=== PATIENT | male | born 1980 | race Caucasian/White ===

== ENCOUNTER 2017-10-29 18:45 | Inpatient (IN) | payer MEDICARE, MEDICAID ==
[~2017-10-29] VITALS: Ht 175.3 cm; Wt 84.0 kg
[~2017-10-29 18:45] MED LIST: ACET-1008 PO; ASPI-4 PO; ATOR10TA70 PO; CALC0.253 PO; CARV3.1244 PO; CINA30TA2 PO; DIPH25CA83 PO; EPOE40002 SQ; FERR324T4 PO; FLUT1DIS INH; GABA-532 PO; HYDR-565 PO; LEVO150T PO; LIDO5CRE13 TOP; METO5TAB98 PO; NEPHC PO; OMEP20TA23 PO; RIFA300C4 PO; SEVE800T8 PO; TRAZ-143 PO; VALS40TA2 PO; VITA1CAP PO; ZOF4I IV; ZOLP10TA5 PO
[2017-10-29 20:24] LABS: BASOPHILS % (AUTO) 0.5 % (0-1); EOSINOPHILS # (AUTO) 0.3 X10'3 (0-0.9); EOSINOPHILS % (AUTO) 3.8 % (0-6); HEMATOCRIT 35.6 % (42.0-52.0); HEMOGLOBIN 12.3 g/dl (14.0-17.9); LYMPHOCYTES % (AUTO) 14.1 % (21-51); MEAN CORPUSCULAR HEMOGLOBIN 33.2 PG (27.0-31.0); MEAN CORPUSCULAR HGB CONC 34.5 % (33.0-36.5); MEAN CORPUSCULAR VOLUME 96.1 FL (78-98); MEAN PLATELET VOLUME 7.7 FL (7.4-10.4); MONOCYTES # (AUTO) 0.9 X10'3 (0-0.9); MONOCYTES % (AUTO) 12.6 % (2-12); PLATELET COUNT 171 X10'3 (140-440); RED BLOOD COUNT 3.71 X10'6 (4.70-6.10); RED CELL DISTRIBUTION WIDTH 15.9 % (11.5-14.5); WHITE BLOOD COUNT 7.3 X10'3 (4.5-11.0)
[2017-10-29 20:36] LABS: INR 1.1 INR; PROTHROMBIN TIME 11.4 SECONDS (9.0-12.0)
[2017-10-29 20:40] LABS: ALANINE AMINOTRANSFERASE 21 U/L (12-78); ALBUMIN 3.3 G/DL (3.4-5.0); ALBUMIN/GLOBULIN RATIO 0.7 (1.1-1.5); ALKALINE PHOSPHATASE 233 IU/L (46-116); ANION GAP 25 (8-16); ASPARTATE AMINO TRANSFERASE 16 U/L (10-37); BILIRUBIN,TOTAL 0.7 MG/DL (0.1-1.0); BLOOD UREA NITROGEN 131 MG/DL (7-18); BUN/CREATININE RATIO 6.9 (5.4-32.0); CALCIUM 8.3 MG/DL (8.5-10.1); CHLORIDE 87 MMOL/L (99-107); CREATININE 18.99 MG/DL (0.60-1.10); GLUCOSE 81 MG/DL (70-104); SODIUM 129 MMOL/L (135-145); TOTAL CARBON DIOXIDE 16.6 MMOL/L (24-32); TOTAL PROTEIN 8.1 G/DL (6.4-8.2); eGFR 3 ML/MIN
[2017-10-29 20:51] LABS: POTASSIUM 7.1 MMOL/L (3.5-5.1)
[2017-10-29] MEDS ORDERED: insulin regular, human 10 units/0.1 ml syringe IV ONE (20:55)
[2017-10-29] MEDS ORDERED: dextrose 50%-water 50ml dispensing syringe IV ONE (20:55)
[2017-10-29] MEDS ORDERED: sodium polystyrene sulfonate 15gm/60ml oral suspension PO ONE ×2 (20:55→21:15)
[2017-10-29] MEDS ORDERED: calcium gluconate inj. 1 GM in normal saline 100ml IV soln 90 ML IV ONE (21:00)
[2017-10-29] MEDS ORDERED: calcium chloride 100 MG/1 ML inj IV ONE (21:15)
[2017-10-29] MEDS ORDERED: HYDROcodone/acetaminophen 10/325mg tab PO PRN (21:15)
[2017-10-29] MEDS ORDERED: gabapentin 300mg capsule PO PRN (21:15)
[2017-10-29] MEDS ORDERED: non-formulary drug (Zolpidem Tartrate* (Ambien*) 1 TABLET) PO PRN (21:15)
[2017-10-29] MEDS ORDERED: acetaminophen 325mg tablet PO PRN ×2 (21:15)
[2017-10-29] MEDS ORDERED: ondansetron/PF 4mg/2ml inj IV PRN (21:15)
[2017-10-29] MEDS ORDERED: diphenhydrAMINE 25mg capsule PO PRN (21:15)
[2017-10-29] MEDS ORDERED: calcium chloride inj. 1,000 MG in normal saline 100ml IV soln 100 ML IV ONE (21:20)
[2017-10-29] MEDS ORDERED: zolpidem 5mg tablet PO PRN (21:25)
[2017-10-29 22:30] VITALS: BP 115/71
[2017-10-30 03:00] VITALS: BP 110/85
[2017-10-30 05:13] LABS: BASOPHILS % (AUTO) 0.5 % (0-1); EOSINOPHILS # (AUTO) 0.3 X10'3 (0-0.9); EOSINOPHILS % (AUTO) 4.6 % (0-6); HEMATOCRIT 34.8 % (42.0-52.0); HEMOGLOBIN 11.9 g/dl (14.0-17.9); LYMPHOCYTES # (AUTO) 1.1 X10'3 (1.1-4.8); LYMPHOCYTES % (AUTO) 15.7 % (21-51); MEAN CORPUSCULAR HEMOGLOBIN 32.9 PG (27.0-31.0); MEAN CORPUSCULAR HGB CONC 34.1 % (33.0-36.5); MEAN CORPUSCULAR VOLUME 96.4 FL (78-98); MEAN PLATELET VOLUME 7.9 FL (7.4-10.4); MONOCYTES # (AUTO) 0.9 X10'3 (0-0.9); NEUTROPHILS # (AUTO) 4.5 X10'3 (1.8-7.7); NEUTROPHILS % (AUTO) 66.2 % (42-75); PLATELET COUNT 162 X10'3 (140-440); RED BLOOD COUNT 3.61 X10'6 (4.70-6.10); RED CELL DISTRIBUTION WIDTH 15.7 % (11.5-14.5); WHITE BLOOD COUNT 6.8 X10'3 (4.5-11.0)
[2017-10-30 05:52] LABS: ALANINE AMINOTRANSFERASE 20 U/L (12-78); ALBUMIN 3.2 G/DL (3.4-5.0); ALBUMIN/GLOBULIN RATIO 0.7 (1.1-1.5); ALKALINE PHOSPHATASE 233 IU/L (46-116); ANION GAP 26 (8-16); ASPARTATE AMINO TRANSFERASE 18 U/L (10-37); BILIRUBIN,TOTAL 0.8 MG/DL (0.1-1.0); BLOOD UREA NITROGEN 131 MG/DL (7-18); BUN/CREATININE RATIO 6.8 (5.4-32.0); CALCIUM 8.6 MG/DL (8.5-10.1); CHLORIDE 88 MMOL/L (99-107); CREATININE 19.37 MG/DL (0.60-1.10); GLUCOSE 86 MG/DL (70-104); MAGNESIUM 2.9 MG/DL (1.5-2.4); PHOSPHORUS 9.2 MG/DL (2.3-4.5); POTASSIUM 5.2 MMOL/L (3.5-5.1); SODIUM 133 MMOL/L (135-145); TOTAL PROTEIN 7.8 G/DL (6.4-8.2); eGFR 3 ML/MIN
[2017-10-30 06:00] VITALS: BP 100/71
[2017-10-30] MEDS ORDERED: levoTHYROXINE 75mcg tablet PO SCH (07:00)
[2017-10-30] MEDS ORDERED: albuterol 2.5 MG/3 ML nebule NEB SCH (07:00)
[2017-10-30] MEDS ORDERED: pantoprazole 40mg Tablet.DR PO SCH (07:30)
[2017-10-30] MEDS ORDERED: calcitriol 0.25mcg capsule PO SCH (08:00)
[2017-10-30] MEDS ORDERED: VITAMIN B COMPLEX PO SCH (08:00)
[2017-10-30] MEDS ORDERED: FERROUS SULFATE PO SCH (08:00)
[2017-10-30] MEDS ORDERED: vitamin B comp w/Vit. C tab 1 TAB TABLET PO SCH (08:00)
[2017-10-30] MEDS ORDERED: rifampin 300mg capsule PO SCH (08:00)
[2017-10-30] MEDS ORDERED: sevelamer carbonate 800mg tablet PO SCH (08:00)
[2017-10-30] MEDS ORDERED: VITAMIN B COMP W C PO SCH (08:00)
[2017-10-30] MEDS ORDERED: OMEPRAZOLE MAGNESIUM PO SCH (08:00)
[2017-10-30] MEDS ORDERED: ferrous sulfate 325mg tablet PO SCH (08:00)
[2017-10-30] MEDS ORDERED: carVEDilol 3.125mg tablet PO SCH (08:00)
[2017-10-30] MEDS ORDERED: atorvastatin 10mg tablet PO SCH (08:00)
[2017-10-30] MEDS ORDERED: aspirin 325mg tablet PO SCH (08:00)
[2017-10-30] MEDS ORDERED: folic acid/vitamin B complex w/vitamin C 0.8mg tablet PO SCH (08:00)
[2017-10-30] MEDS ORDERED: non-formulary drug (Fluticasone/Salmeterol (Advair 100-50 Diskus) 1 PUFFS) INH SCH (08:00)
[2017-10-30] MEDS ORDERED: LEVOTHYROXINE SODIUM PO SCH (08:00)
[2017-10-30] MEDS ORDERED: FOLIC ACID PO SCH (08:00)
[2017-10-30] MEDS ORDERED: BUDESONIDE 0.25 MG/2 ML AMPUL.NEB IH SCH (09:00)
[2017-10-30] MEDS ORDERED: LIDOcaine 1%/PF (10mg/ml) 5ml vial ONE (09:47)
[2017-10-30] MEDS ORDERED: heparin 1,000 units/ml 10ml inj ICATH ONE (09:50)
[2017-10-30] MEDS ORDERED: LIDOcaine 1%/PF (10mg/ml) 5ml vial SQ ONE (09:50)
[2017-10-30] MEDS ORDERED: fentaNYL/PF 50MCG/1 ML 2ML syringe IV PRN (09:50)
[2017-10-30] MEDS ORDERED: midazolam 2 mg/2 ml injection IV PRN (09:50)
[2017-10-30] MEDS ORDERED: heparin 1,000unit/ml 10ml vial 10 ML ONE (10:04)
[2017-10-30] MEDS ORDERED: fentaNYL/PF 50MCG/1 ML 2ML syringe ONE (10:04)
[2017-10-30] MEDS ORDERED: midazolam 2 mg/2 ml injection ONE (10:04)
[2017-10-30] MEDS ORDERED: traZODone 50mg tablet PO SCH (21:00)
[2017-11-01] MEDS ORDERED: cinacalcet 30mg tablet PO SCH (08:00)
== END 2017-10-30 13:58 | disposition home or self-care (01) | DRG 314 ==
LOC: ER 18:46 → ED HOLD 21:19 → PCU 3S 22:21
PROVIDERS: ADMIT Internal Medicine Critical Care Medicine; ATTEND Internal Medicine Critical Care Medicine
PROC: 0JH63XZ Insertion of Tunneled Vascular Access Device into Chest Subcutaneous Tissue and Fascia, Percutaneous Approach (ICD-10-PCS; principal; 2017-10-30)
PROC: 02HV33Z Insertion of Infusion Device into Superior Vena Cava, Percutaneous Approach (ICD-10-PCS; 2017-10-30)
PROC: B548ZZA Ultrasonography of Superior Vena Cava, Guidance (ICD-10-PCS; 2017-10-30)
DX: T82.818A Embolism due to vascular prosthetic devices, implants and grafts, initial encounter (principal); N18.6 End stage renal disease; E87.1 Hypo-osmolality and hyponatremia; I13.2 Hypertensive heart and chronic kidney disease with heart failure and with stage 5 chronic kidney disease, or end stage renal disease; K76.9 Liver disease, unspecified; Y83.2 Surgical operation with anastomosis, bypass or graft as the cause of abnormal reaction of the patient, or of later complication, without mention of misadventure at the time of the procedure; E87.5 Hyperkalemia; I25.10 Atherosclerotic heart disease of native coronary artery without angina pectoris; I50.9 Heart failure, unspecified; Z79.82 Long term (current) use of aspirin; Z79.899 Other long term (current) drug therapy; Z95.1 Presence of aortocoronary bypass graft; Z99.2 Dependence on renal dialysis; Z82.49 Family history of ischemic heart disease and other diseases of the circulatory system; Z82.3 Family history of stroke; Z84.89 Family history of other specified conditions; Z83.3 Family history of diabetes mellitus
CPT/HCPCS: 36415; 36558; 76937; 77001; 80053; 83735; 84100; 85025; 85610; 87070; 96374; 96375; 99152; 99153; 99285; A4620; A9270; C1750; C1894; J1644; J1815; J2001; J2250; J3010; J7030; J8597

== ENCOUNTER 2017-11-04 08:42 | Day surgery (SDC) | payer MEDICARE, MEDICAID ==
[~2017-11-04] VITALS: Ht 172.7 cm; Wt 91.8 kg
[~2017-11-04 08:42] MED LIST changes: -LIDO5CRE13 TOP
[2017-11-04] MEDS ORDERED: normal saline 1000ml 1,000 ML IV PRN (09:05)
[2017-11-04 09:14] VITALS: BP 111/77
[2017-11-04 09:34] LABS: BASOPHILS # (AUTO) 0.1 X10'3 (0-0.2); BASOPHILS % (AUTO) 0.8 % (0-1); EOSINOPHILS # (AUTO) 0.4 X10'3 (0-0.9); EOSINOPHILS % (AUTO) 5.3 % (0-6); HEMATOCRIT 34.1 % (42.0-52.0); HEMOGLOBIN 11.7 g/dl (14.0-17.9); LYMPHOCYTES # (AUTO) 1.1 X10'3 (1.1-4.8); LYMPHOCYTES % (AUTO) 14.3 % (21-51); MEAN CORPUSCULAR HEMOGLOBIN 33.1 PG (27.0-31.0); MEAN CORPUSCULAR HGB CONC 34.5 % (33.0-36.5); MEAN PLATELET VOLUME 7.4 FL (7.4-10.4); MONOCYTES # (AUTO) 0.8 X10'3 (0-0.9); MONOCYTES % (AUTO) 10.3 % (2-12); NEUTROPHILS # (AUTO) 5.2 X10'3 (1.8-7.7); NEUTROPHILS % (AUTO) 69.3 % (42-75); PLATELET COUNT 184 X10'3 (140-440); RED BLOOD COUNT 3.55 X10'6 (4.70-6.10); RED CELL DISTRIBUTION WIDTH 15.8 % (11.5-14.5); WHITE BLOOD COUNT 7.4 X10'3 (4.5-11.0)
[2017-11-04] MEDS ORDERED: heparin 1,000 units/ml 10ml inj ICATH ONE (09:40)
[2017-11-04] MEDS ORDERED: fentaNYL/PF 50MCG/1 ML 2ML syringe IV PRN (09:40)
[2017-11-04] MEDS ORDERED: midazolam 2 mg/2 ml injection IV PRN (09:40)
[2017-11-04] MEDS ORDERED: SEVE800T7 PO (09:42)
[2017-11-04] MEDS ORDERED: TRAZ-143 PO (09:42)
[2017-11-04] MEDS ORDERED: LIDOcaine 1%/PF 5ML 10 MG/ML VIAL ONE (09:42)
[2017-11-04] MEDS ORDERED: ERGO2500 PO (09:42)
[2017-11-04] MEDS ORDERED: LEVO100T9 PO (09:42)
[2017-11-04] MEDS ORDERED: CINA30TA PO (09:42)
[2017-11-04] MEDS ORDERED: iohexol 300mg/ml 100ml inj. ONE (09:43)
[2017-11-04] MEDS ORDERED: midazolam 2 mg/2 ml injection ONE ×2 (09:59→10:17)
[2017-11-04] MEDS ORDERED: fentaNYL/PF 50MCG/1 ML 2ML syringe ONE ×3 (09:59→11:22)
[2017-11-04] MEDS ORDERED: heparin 1,000 UNITS/NS 500ml 500 ML ONE (09:59)
[2017-11-04] MEDS ORDERED: tPA-cathflo 2 MG/2 ml IV flush ONE (10:17)
[2017-11-04 11:50] VITALS: BP 121/77
[2017-11-04 12:00] VITALS: BP 124/89
[2017-11-04 12:15] VITALS: BP 121/91
[2017-11-04 12:30] VITALS: BP 124/86
== END 2017-11-04 13:00 | disposition home or self-care (01) ==
LOC: SSTAY O 08:42
PROVIDERS: ATTEND Radiology Diagnostic Radiology
DX: T82.868A Thrombosis due to vascular prosthetic devices, implants and grafts, initial encounter (principal); I12.0 Hypertensive chronic kidney disease with stage 5 chronic kidney disease or end stage renal disease; N18.6 End stage renal disease; I25.10 Atherosclerotic heart disease of native coronary artery without angina pectoris; L40.8 Other psoriasis; E03.9 Hypothyroidism, unspecified; Z95.1 Presence of aortocoronary bypass graft; Z95.2 Presence of prosthetic heart valve; Z79.82 Long term (current) use of aspirin; Z79.891 Long term (current) use of opiate analgesic; Z87.891 Personal history of nicotine dependence; Z99.2 Dependence on renal dialysis; Z83.3 Family history of diabetes mellitus; Z79.899 Other long term (current) drug therapy; Z98.890 Other specified postprocedural states; Y83.2 Surgical operation with anastomosis, bypass or graft as the cause of abnormal reaction of the patient, or of later complication, without mention of misadventure at the time of the procedure; Y92.89 Other specified places as the place of occurrence of the external cause
CPT/HCPCS: 36415; 36905; 76937; 85025; 99152; 99153; C1725; C1769; C1894; J1644; J2001; J2250; J2997; J3010; J7030; Q9967; 36902; A4620

== ENCOUNTER 2018-01-05 11:42 | Inpatient (IN) | payer MEDICARE, MEDICAID ==
[2018-01-05] VITALS (14 sets, daily range): BP systolic 81–103; BP diastolic 56–84
[~2018-01-05] VITALS: Ht 172.7 cm; Wt 112.2 kg
[~2018-01-05 11:42] MED LIST changes: -ACET-1008 PO; +CINA30TA PO; -CINA30TA2 PO; -DIPH25CA83 PO; -EPOE40002 SQ; +ERGO2500 PO; -FERR324T4 PO; -FLUT1DIS INH; -HYDR-565 PO; +LEVO100T9 PO; -LEVO150T PO; -METO5TAB98 PO; -NEPHC PO; +NORepinephrine bitartrate 8 MG in NS 250 ML BAG (32 mcg/ml) IV ONE; -OMEP20TA23 PO; -RIFA300C4 PO; +SEVE800T7 PO; -SEVE800T8 PO; -TRAZ-143 PO; +TRAZ-218 PO; -VALS40TA2 PO; -VITA1CAP PO; -ZOF4I IV; -ZOLP10TA5 PO
[2018-01-05] MEDS ORDERED: normal saline 1000ml 1,000 ML IV ONE (11:55)
[2018-01-05 12:00] LABS: BASOPHILS % (AUTO) 0.2 % (0-1); EOSINOPHILS # (AUTO) 0.3 X10'3 (0-0.9); EOSINOPHILS % (AUTO) 3.2 % (0-6); HEMOGLOBIN 7.1 g/dl (14.0-17.9); LYMPHOCYTES # (AUTO) 1.6 X10'3 (1.1-4.8); LYMPHOCYTES % (AUTO) 19.3 % (21-51); MEAN CORPUSCULAR HEMOGLOBIN 35.1 PG (27.0-31.0); MEAN CORPUSCULAR HGB CONC 34.9 % (33.0-36.5); MEAN CORPUSCULAR VOLUME 100.6 FL (78-98); MEAN PLATELET VOLUME 7.8 FL (7.4-10.4); MONOCYTES # (AUTO) 0.5 X10'3 (0-0.9); MONOCYTES % (AUTO) 6.4 % (2-12); NEUTROPHILS # (AUTO) 5.9 X10'3 (1.8-7.7); NEUTROPHILS % (AUTO) 70.9 % (42-75); PLATELET COUNT 172 X10'3 (140-440); RED BLOOD COUNT 2.03 X10'6 (4.70-6.10); RED CELL DISTRIBUTION WIDTH 17.6 % (11.5-14.5); WHITE BLOOD COUNT 8.3 X10'3 (4.5-11.0)
[2018-01-05 12:05] LABS: HEMATOCRIT 20.4 % (42.0-52.0)
[2018-01-05 12:16] LABS: PARTIAL THROMBOPLASTIN TIME 49 SECONDS (22-32); PROTHROMBIN TIME 62.4 SECONDS (9.0-12.0)
[2018-01-05] MEDS: NORepinephrine 8mg/ 250ml NS 250 ML IV PRN (12:18)
[2018-01-05 12:20] LABS: ALBUMIN 1.6 G/DL (3.4-5.0); ALKALINE PHOSPHATASE 109 IU/L (46-116); ANION GAP 17 (8-16); BILIRUBIN,TOTAL 10.2 MG/DL (0.1-1.0); BLOOD UREA NITROGEN 24 MG/DL (7-18); BUN/CREATININE RATIO 2.9 (5.4-32.0); CALCIUM 10.9 MG/DL (8.5-10.1); CHLORIDE 95 MMOL/L (99-107); CREATININE 8.26 MG/DL (0.60-1.10); GLUCOSE 103 MG/DL (70-104); MAGNESIUM 2.2 MG/DL (1.5-2.4); SODIUM 136 MMOL/L (135-145); eGFR 7 ML/MIN
[2018-01-05 12:21] LABS: INR 6.5 INR
[2018-01-05 12:27] LABS: ANISOCYTOSIS 2+; NUCLEATED RED BLOOD CELLS 2 /100WBC (0-0); PLATELET ESTIMATE NORMAL; TOTAL CELLS COUNTED 100
[2018-01-05 12:28] LABS: BURR CELLS 1+; SCHISTOCYTES FEW
[2018-01-05 12:29] LABS: HYPOCHROMASIA 1+
[2018-01-05 12:30] LABS: ELLIPTOCYTES FEW
[2018-01-05] MEDS ORDERED: NORepinephrine 8mg/ 250ml NS 250 ML IV PRN (12:31)
[2018-01-05 12:32] LABS: ALANINE AMINOTRANSFERASE 211 U/L (12-78); ALBUMIN/GLOBULIN RATIO 0.4 (1.1-1.5); ASPARTATE AMINO TRANSFERASE 427 U/L (10-37)
[2018-01-05] MEDS ORDERED: ondansetron/PF 4mg/2ml inj IV PRN (12:35)
[2018-01-05] MEDS ORDERED: acetaminophen 325mg tablet PO PRN ×2 (12:35)
[2018-01-05 12:42] LABS: POTASSIUM 3.9 MMOL/L (3.5-5.1)
[2018-01-05 12:45] LABS: TROPONIN I 0.89 NG/ML (0.0-0.05)
[2018-01-05 12:53] LABS: TOTAL PROTEIN 5.9 G/DL (6.4-8.2)
[2018-01-05] MEDS ORDERED: normal saline 1000ml 250 ML IV PRN (13:41)
[2018-01-05] MEDS ORDERED: epoetin 20,000 units/ml inj IV ONE (13:45)
[2018-01-05] MEDS ORDERED: heparin 1,000 units/ml 10ml inj HE ONE ×2 (13:45)
[2018-01-05 15:50] LABS: OXYGEN SATURATION (MIXED VEN) 53.8 % (60-80); PO2 MIXED VENOUS (TEMP COR) 35.8 mmHg (35-46)
[2018-01-05] MEDS ORDERED: DOBUTamine-DoBUTrex 500mg/D5W 250 ML IV SCH (17:00)
[2018-01-05 21:33] LABS: BASOPHILS % (AUTO) 0.6 % (0-1); EOSINOPHILS # (AUTO) 0.3 X10'3 (0-0.9); EOSINOPHILS % (AUTO) 3.4 % (0-6); HEMOGLOBIN 7.5 g/dl (14.0-17.9); LYMPHOCYTES # (AUTO) 1.3 X10'3 (1.1-4.8); LYMPHOCYTES % (AUTO) 17.2 % (21-51); MEAN CORPUSCULAR HEMOGLOBIN 35.5 PG (27.0-31.0); MEAN CORPUSCULAR HGB CONC 35.5 % (33.0-36.5); MEAN CORPUSCULAR VOLUME 99.8 FL (78-98); MEAN PLATELET VOLUME 7.4 FL (7.4-10.4); MONOCYTES # (AUTO) 0.4 X10'3 (0-0.9); MONOCYTES % (AUTO) 4.8 % (2-12); NEUTROPHILS # (AUTO) 5.7 X10'3 (1.8-7.7); PLATELET COUNT 211 X10'3 (140-440); RED BLOOD COUNT 2.12 X10'6 (4.70-6.10); RED CELL DISTRIBUTION WIDTH 17.1 % (11.5-14.5); WHITE BLOOD COUNT 7.7 X10'3 (4.5-11.0)
[2018-01-05] MEDS: nafcillin inj 2 GM in normal saline 100ml IV soln 100 ML IV SCH (21:34)
[2018-01-05] MEDS: docusate sod 100mg capsule PO SCH (21:35)
[2018-01-05 21:41] LABS: HEMATOCRIT 21.1 % (42.0-52.0)
[2018-01-06] VITALS (37 sets, daily range): BP systolic 75–147; BP diastolic 48–93
[2018-01-06] MEDS: nafcillin inj 2 GM in normal saline 100ml IV soln 100 ML IV SCH ×6 (00:19→20:28)
[2018-01-06] MEDS: NORepinephrine 8mg/ 250ml NS 250 ML IV PRN ×4 (00:21→22:27)
[2018-01-06 00:45] LABS: INR 2.5 INR; PROTHROMBIN TIME 25.3 SECONDS (9.0-12.0)
[2018-01-06] MEDS ORDERED: VASOPRESSIN 60 UNITS in NS 100ml IV SCH (02:55)
[2018-01-06] MEDS ORDERED: hydrocortisone sod succ/PF 250mg/2ml inj. IV ONE (03:05)
[2018-01-06] MEDS ORDERED: hydrocortisone sod succ/PF 100mg/2ml inj. IV ONE (03:25)
[2018-01-06] MEDS: DOBUTamine-DoBUTrex 500mg/D5W 250 ML IV SCH ×2 (03:37→21:17)
[2018-01-06 04:05] LABS: BASOPHILS % (AUTO) 0.3 % (0-1); EOSINOPHILS # (AUTO) 0.4 X10'3 (0-0.9); EOSINOPHILS % (AUTO) 3.6 % (0-6); HEMOGLOBIN 7.2 g/dl (14.0-17.9); LYMPHOCYTES # (AUTO) 1.2 X10'3 (1.1-4.8); LYMPHOCYTES % (AUTO) 12.1 % (21-51); MEAN CORPUSCULAR HEMOGLOBIN 35.5 PG (27.0-31.0); MEAN CORPUSCULAR HGB CONC 34.8 % (33.0-36.5); MEAN PLATELET VOLUME 7.3 FL (7.4-10.4); MONOCYTES # (AUTO) 0.9 X10'3 (0-0.9); MONOCYTES % (AUTO) 8.8 % (2-12); NEUTROPHILS # (AUTO) 7.5 X10'3 (1.8-7.7); NEUTROPHILS % (AUTO) 75.2 % (42-75); PLATELET COUNT 222 X10'3 (140-440); RED BLOOD COUNT 2.02 X10'6 (4.70-6.10); RED CELL DISTRIBUTION WIDTH 17.1 % (11.5-14.5)
[2018-01-06 04:15] LABS: INR 2.4 INR; PROTHROMBIN TIME 24.1 SECONDS (9.0-12.0)
[2018-01-06 04:19] LABS: ALANINE AMINOTRANSFERASE 288 U/L (12-78); ALBUMIN 1.7 G/DL (3.4-5.0); ALKALINE PHOSPHATASE 102 IU/L (46-116); ANION GAP 10 (8-16); BILIRUBIN,TOTAL 9.1 MG/DL (0.1-1.0); BLOOD UREA NITROGEN 12 MG/DL (7-18); BUN/CREATININE RATIO 2.5 (5.4-32.0); CALCIUM 10.2 MG/DL (8.5-10.1); CHLORIDE 98 MMOL/L (99-107); CREATININE 4.83 MG/DL (0.60-1.10); GLUCOSE 121 MG/DL (70-104); SODIUM 135 MMOL/L (135-145); TOTAL CARBON DIOXIDE 27.4 MMOL/L (24-32); eGFR 14 ML/MIN
[2018-01-06 04:30] LABS: HEMATOCRIT 20.6 % (42.0-52.0)
[2018-01-06 04:32] LABS: PLATELET ESTIMATE NORMAL
[2018-01-06 04:33] LABS: ANISOCYTOSIS 1+; ELLIPTOCYTES FEW; HYPOCHROMASIA 1+; MICROCYTOSIS 1+; POLYCHROMASIA 1+; SCHISTOCYTES FEW; SPHEROCYTES FEW
[2018-01-06 04:34] LABS: ALBUMIN/GLOBULIN RATIO 0.3 (1.1-1.5); PHOSPHORUS 3.7 MG/DL (2.3-4.5); POTASSIUM 3.7 MMOL/L (3.5-5.1); TOTAL PROTEIN 6.7 G/DL (6.4-8.2)
[2018-01-06 05:47] LABS: ASPARTATE AMINO TRANSFERASE 451 U/L (10-37)
[2018-01-06] MEDS ORDERED: DOBUTamine-DoBUTrex 500mg/D5W 250 ML IV ONE (07:06)
[2018-01-06] MEDS: docusate sod 100mg capsule PO SCH ×3 (08:00→20:00)
[2018-01-06] MEDS: hydrocortisone sod succ/PF 100mg/2ml inj. IV SCH ×3 (08:28→20:26)
[2018-01-06] MEDS ORDERED: WARF-65 PO (09:32)
[2018-01-06 10:20] LABS: OXYGEN SATURATION (MIXED VEN) 62.7 % (60-80); PO2 MIXED VENOUS (TEMP COR) 34.6 mmHg (35-46)
[2018-01-06] MEDS ORDERED: phytonadione inj. 10 MG in normal saline 100ml IV soln 99 ML IV ONE (12:00)
[2018-01-06] MEDS: morphine 4 MG/ML inj SYRINge IV PRN (15:07)
[2018-01-06 16:18] LABS: TROPONIN I 1.51 NG/ML (0.0-0.05)
[2018-01-06] MEDS ORDERED: gabapentin 300mg capsule PO PRN (16:35)
[2018-01-06 16:43] LABS: ALBUMIN,BODY FLUID 0.9 G/DL; AMYLASE,BODY FLUID 26 U/L; LIPASE,BODY FLUID 43 U/L
[2018-01-06 16:54] LABS: BF WBC COUNT 190 /CU MM (0-1000); BFAPPEAR CLEAR; BFCOLOR YELLOW; BFVOLUME 16 ML
[2018-01-06 16:55] LABS: BF RBC COUNT 80 /CU MM; LYMPHOCYTES,BODY FLUID 42 %; MONOCYTES,BODY FLUID 50 %; NEUTROPHILS,BODY FLUID 8 %
[2018-01-06] MEDS: sevelamer carbonate 800mg tablet PO SCH (18:38)
[2018-01-06] MEDS: traZODone 50mg tablet PO SCH (20:26)
[2018-01-06] MEDS: lactobacillus rhamnosus 10,000 MMU CELLS/CAPSULE PO SCH (20:27)
[2018-01-07] VITALS (24 sets, daily range): BP systolic 95–119; BP diastolic 74–90
[2018-01-07] MEDS: nafcillin inj 2 GM in normal saline 100ml IV soln 100 ML IV SCH ×6 (00:33→20:08)
[2018-01-07] MEDS: hydrocortisone sod succ/PF 100mg/2ml inj. IV SCH ×4 (02:05→20:05)
[2018-01-07] MEDS: NORepinephrine 8mg/ 250ml NS 250 ML IV PRN ×2 (03:18→14:30)
[2018-01-07 03:19] LABS: BASOPHILS % (AUTO) 0 % (0-1); EOSINOPHILS # (AUTO) 0.1 X10'3 (0-0.9); EOSINOPHILS % (AUTO) 0.8 % (0-6); HEMOGLOBIN 7.1 g/dl (14.0-17.9); LYMPHOCYTES # (AUTO) 0.9 X10'3 (1.1-4.8); LYMPHOCYTES % (AUTO) 8.6 % (21-51); MEAN CORPUSCULAR HEMOGLOBIN 34.5 PG (27.0-31.0); MEAN CORPUSCULAR HGB CONC 35.1 % (33.0-36.5); MEAN CORPUSCULAR VOLUME 98.3 FL (78-98); MEAN PLATELET VOLUME 6.9 FL (7.4-10.4); MONOCYTES # (AUTO) 0.7 X10'3 (0-0.9); NEUTROPHILS # (AUTO) 8.4 X10'3 (1.8-7.7); NEUTROPHILS % (AUTO) 83.6 % (42-75); PLATELET COUNT 195 X10'3 (140-440); RED BLOOD COUNT 2.06 X10'6 (4.70-6.10); RED CELL DISTRIBUTION WIDTH 17.7 % (11.5-14.5)
[2018-01-07 03:28] LABS: INR 1.3 INR; PROTHROMBIN TIME 13.2 SECONDS (9.0-12.0)
[2018-01-07 03:32] LABS: HEMATOCRIT 20.3 % (42.0-52.0)
[2018-01-07 03:34] LABS: ALBUMIN 1.7 G/DL (3.4-5.0); ALKALINE PHOSPHATASE 97 IU/L (46-116); BILIRUBIN,TOTAL 10.5 MG/DL (0.1-1.0); BLOOD UREA NITROGEN 16 MG/DL (7-18); BUN/CREATININE RATIO 2.9 (5.4-32.0); CALCIUM 9.7 MG/DL (8.5-10.1); CHLORIDE 98 MMOL/L (99-107); CREATININE 5.49 MG/DL (0.60-1.10); GLUCOSE 170 MG/DL (70-104); MAGNESIUM 1.8 MG/DL (1.5-2.4); TOTAL CARBON DIOXIDE 24.9 MMOL/L (24-32); eGFR 12 ML/MIN
[2018-01-07 03:42] LABS: ALBUMIN/GLOBULIN RATIO 0.4 (1.1-1.5); POTASSIUM 3.9 MMOL/L (3.5-5.1)
[2018-01-07 04:18] LABS: ANISOCYTOSIS 2+; ELLIPTOCYTES FEW; MICROCYTOSIS 2+; PLATELET ESTIMATE NORMAL; POLYCHROMASIA 1+; SCHISTOCYTES 1+; SPHEROCYTES 1+
[2018-01-07 04:19] LABS: ACANTHOCYTES FEW
[2018-01-07 04:25] LABS: ANION GAP 14 (8-16); SODIUM 137 MMOL/L (135-145)
[2018-01-07 04:42] LABS: ALANINE AMINOTRANSFERASE 177 U/L (12-78)
[2018-01-07 04:45] LABS: PHOSPHORUS 5.7 MG/DL (2.3-4.5); TOTAL PROTEIN 6.4 G/DL (6.4-8.2)
[2018-01-07 04:54] LABS: ASPARTATE AMINO TRANSFERASE 142 U/L (10-37)
[2018-01-07] MEDS: docusate sod 100mg capsule PO SCH ×2 (07:39→20:00)
[2018-01-07] MEDS: atorvastatin 10mg tablet PO SCH (07:39)
[2018-01-07] MEDS: levoTHYROXINE 100mcg tablet PO SCH (07:40)
[2018-01-07] MEDS: lactobacillus rhamnosus 10,000 MMU CELLS/CAPSULE PO SCH ×2 (07:40→20:04)
[2018-01-07] MEDS: calcitriol 0.25mcg capsule PO SCH (07:40)
[2018-01-07] MEDS: aspirin 325mg tablet PO SCH (07:40)
[2018-01-07] MEDS: sevelamer carbonate 800mg tablet PO SCH ×3 (07:41→19:18)
[2018-01-07] MEDS: cinacalcet 30mg tablet PO SCH (07:41)
[2018-01-07] MEDS ORDERED: heparin 1,000 units/ml 10ml inj IV ONE (08:00)
[2018-01-07] MEDS ORDERED: ERGOCALCIFEROL PO SCH (08:00)
[2018-01-07] MEDS ORDERED: heparin 1,000 units/ml 10ml inj HE ONE ×2 (08:00)
[2018-01-07] MEDS ORDERED: albumin (human) 25% 100ml IV 100 ML IV PRN (08:00)
[2018-01-07] MEDS ORDERED: heparin 1,000unit/ml 10ml vial 10 ML IV ONE (08:00)
[2018-01-07] MEDS ORDERED: epoetin 20,000 units/ml inj IV ONE (08:00)
[2018-01-07] MEDS: DOBUTamine-DoBUTrex 500mg/D5W 250 ML IV SCH (11:54)
[2018-01-07] MEDS: NUT.TX.IMP.RENAL FXN,LAC-REDUC (Nepro) 237 ML VANILLA PO SCH ×2 (12:44→18:00)
[2018-01-07] MEDS: enoxaparin 60mg/0.6ml syringe SUBCUT SCH (16:40)
[2018-01-07 17:01] LABS: % IRON SATURATION 101 % (11-46); IRON 179 UG/DL (53-167); TOTAL IRON BINDING CAPACITY 177 UG/DL (259-388)
[2018-01-07] MEDS ORDERED: hydrocortisone sod succ/PF 100mg/2ml inj. IV SCH (20:00)
[2018-01-07] MEDS: traZODone 50mg tablet PO SCH (20:04)
[2018-01-08] VITALS (25 sets, daily range): BP systolic 70–114; BP diastolic 55–90
[2018-01-08] MEDS: nafcillin inj 2 GM in normal saline 100ml IV soln 100 ML IV SCH ×6 (00:12→19:51)
[2018-01-08 03:06] LABS: BASOPHILS % (AUTO) 0.2 % (0-1); EOSINOPHILS # (AUTO) 0.2 X10'3 (0-0.9); EOSINOPHILS % (AUTO) 1.5 % (0-6); HEMATOCRIT 22.9 % (42.0-52.0); LYMPHOCYTES # (AUTO) 1.3 X10'3 (1.1-4.8); LYMPHOCYTES % (AUTO) 12.8 % (21-51); MEAN CORPUSCULAR HEMOGLOBIN 34.4 PG (27.0-31.0); MEAN CORPUSCULAR HGB CONC 34.9 % (33.0-36.5); MEAN CORPUSCULAR VOLUME 98.5 FL (78-98); MEAN PLATELET VOLUME 7.2 FL (7.4-10.4); MONOCYTES # (AUTO) 0.8 X10'3 (0-0.9); MONOCYTES % (AUTO) 7.3 % (2-12); NEUTROPHILS # (AUTO) 8.1 X10'3 (1.8-7.7); NEUTROPHILS % (AUTO) 78.2 % (42-75); PLATELET COUNT 220 X10'3 (140-440); RED BLOOD COUNT 2.33 X10'6 (4.70-6.10); RED CELL DISTRIBUTION WIDTH 17.4 % (11.5-14.5); WHITE BLOOD COUNT 10.4 X10'3 (4.5-11.0)
[2018-01-08 03:15] LABS: INR 1.1 INR; PROTHROMBIN TIME 11.4 SECONDS (9.0-12.0)
[2018-01-08 03:21] LABS: ALANINE AMINOTRANSFERASE 90 U/L (12-78); ALBUMIN 1.8 G/DL (3.4-5.0); ALKALINE PHOSPHATASE 98 IU/L (46-116); ANION GAP 10 (8-16); BLOOD UREA NITROGEN 15 MG/DL (7-18); CALCIUM 10.1 MG/DL (8.5-10.1); CHLORIDE 97 MMOL/L (99-107); CREATININE 5.04 MG/DL (0.60-1.10); GLUCOSE 112 MG/DL (70-104); MAGNESIUM 1.9 MG/DL (1.5-2.4); SODIUM 133 MMOL/L (135-145); eGFR 13 ML/MIN
[2018-01-08 03:22] LABS: ALBUMIN/GLOBULIN RATIO 0.4 (1.1-1.5); ASPARTATE AMINO TRANSFERASE 55 U/L (10-37); PHOSPHORUS 4.4 MG/DL (2.3-4.5); POTASSIUM 3.8 MMOL/L (3.5-5.1); TOTAL PROTEIN 6.9 G/DL (6.4-8.2)
[2018-01-08] MEDS: NORepinephrine 8mg/ 250ml NS 250 ML IV PRN (03:56)
[2018-01-08] MEDS ORDERED: levoTHYROXINE 25mcg tablet PO SCH (07:00)
[2018-01-08 07:50] LABS: ANISOCYTOSIS 2+; NUCLEATED RED BLOOD CELLS 2 /100WBC (0-0); PLATELET ESTIMATE NORMAL; ROULEAUX 1+; TOTAL CELLS COUNTED 100
[2018-01-08 07:51] LABS: POLYCHROMASIA 1+
[2018-01-08 07:52] LABS: ELLIPTOCYTES FEW; SPHEROCYTES 1+
[2018-01-08 07:53] LABS: TARGET CELLS FEW
[2018-01-08] MEDS: NUT.TX.IMP.RENAL FXN,LAC-REDUC (Nepro) 237 ML VANILLA PO SCH ×3 (08:00→17:54)
[2018-01-08] MEDS: hydrocortisone sod succ/PF 100mg/2ml inj. IV SCH ×2 (08:14→19:44)
[2018-01-08] MEDS: enoxaparin 60mg/0.6ml syringe SUBCUT SCH (08:15)
[2018-01-08] MEDS: docusate sod 100mg capsule PO SCH ×2 (08:16→20:00)
[2018-01-08] MEDS: calcitriol 0.25mcg capsule PO SCH (08:16)
[2018-01-08] MEDS: aspirin 325mg tablet PO SCH (08:16)
[2018-01-08] MEDS: atorvastatin 10mg tablet PO SCH (08:16)
[2018-01-08] MEDS: levoTHYROXINE 100mcg tablet PO SCH (08:16)
[2018-01-08] MEDS: lactobacillus rhamnosus 10,000 MMU CELLS/CAPSULE PO SCH ×2 (08:16→19:51)
[2018-01-08] MEDS: cinacalcet 30mg tablet PO SCH (08:16)
[2018-01-08] MEDS: sevelamer carbonate 800mg tablet PO SCH ×3 (08:19→17:54)
[2018-01-08] MEDS: DOBUTamine-DoBUTrex 500mg/D5W 250 ML IV SCH ×2 (09:06→22:28)
[2018-01-08] MEDS: traZODone 50mg tablet PO SCH (19:41)
[2018-01-09] VITALS (26 sets, daily range): BP systolic 67–96; BP diastolic 51–76
[2018-01-09] MEDS: NUT.TX.IMP.RENAL FXN,LAC-REDUC (Nepro) 237 ML VANILLA PO SCH ×3 (01:27→18:01)
[2018-01-09 03:01] LABS: BASOPHILS % (AUTO) 0.1 % (0-1); EOSINOPHILS # (AUTO) 0.1 X10'3 (0-0.9); EOSINOPHILS % (AUTO) 1.1 % (0-6); HEMATOCRIT 23.3 % (42.0-52.0); HEMOGLOBIN 8.1 g/dl (14.0-17.9); LYMPHOCYTES # (AUTO) 1.3 X10'3 (1.1-4.8); LYMPHOCYTES % (AUTO) 14.4 % (21-51); MEAN CORPUSCULAR HEMOGLOBIN 34.4 PG (27.0-31.0); MEAN CORPUSCULAR HGB CONC 34.9 % (33.0-36.5); MEAN CORPUSCULAR VOLUME 98.6 FL (78-98); MEAN PLATELET VOLUME 7.3 FL (7.4-10.4); MONOCYTES # (AUTO) 0.8 X10'3 (0-0.9); MONOCYTES % (AUTO) 8.4 % (2-12); PLATELET COUNT 192 X10'3 (140-440); RED BLOOD COUNT 2.37 X10'6 (4.70-6.10); RED CELL DISTRIBUTION WIDTH 17.4 % (11.5-14.5); WHITE BLOOD COUNT 9.3 X10'3 (4.5-11.0)
[2018-01-09 03:16] LABS: INR 1.1 INR; PROTHROMBIN TIME 11.1 SECONDS (9.0-12.0)
[2018-01-09 03:36] LABS: ALANINE AMINOTRANSFERASE 104 U/L (12-78); ALBUMIN 1.7 G/DL (3.4-5.0); ALBUMIN/GLOBULIN RATIO 0.3 (1.1-1.5); ALKALINE PHOSPHATASE 115 IU/L (46-116); ANION GAP 12 (8-16); BILIRUBIN,TOTAL 8.4 MG/DL (0.1-1.0); BLOOD UREA NITROGEN 25 MG/DL (7-18); BUN/CREATININE RATIO 4.4 (5.4-32.0); CALCIUM 9.7 MG/DL (8.5-10.1); CHLORIDE 95 MMOL/L (99-107); CREATININE 5.62 MG/DL (0.60-1.10); FERRITIN 995 NG/ML (26-388); GLUCOSE 109 MG/DL (70-104); MAGNESIUM 1.9 MG/DL (1.5-2.4); PHOSPHORUS 3.9 MG/DL (2.3-4.5); SODIUM 134 MMOL/L (135-145); TOTAL CARBON DIOXIDE 26.9 MMOL/L (24-32); TOTAL PROTEIN 6.7 G/DL (6.4-8.2); eGFR 11 ML/MIN
[2018-01-09 03:37] LABS: ASPARTATE AMINO TRANSFERASE 55 U/L (10-37); POTASSIUM 3.6 MMOL/L (3.5-5.1)
[2018-01-09] MEDS: nafcillin inj 2 GM in normal saline 100ml IV soln 100 ML IV SCH ×7 (06:06→20:39)
[2018-01-09 07:22] LABS: ANISOCYTOSIS 2+; PLATELET ESTIMATE NORMAL; POLYCHROMASIA 1+; ROULEAUX 1+; TOTAL CELLS COUNTED 100; TOXIC GRANULATION 1+
[2018-01-09 07:24] LABS: BURR CELLS 1+; SPHEROCYTES 1+
[2018-01-09] MEDS: calcitriol 0.25mcg capsule PO SCH (08:10)
[2018-01-09] MEDS: hydrocortisone sod succ/PF 100mg/2ml inj. IV SCH ×2 (08:10→20:39)
[2018-01-09] MEDS: docusate sod 100mg capsule PO SCH ×2 (08:10→20:00)
[2018-01-09] MEDS: lactobacillus rhamnosus 10,000 MMU CELLS/CAPSULE PO SCH ×2 (08:10→20:38)
[2018-01-09] MEDS: atorvastatin 10mg tablet PO SCH (08:10)
[2018-01-09] MEDS: aspirin 325mg tablet PO SCH (08:10)
[2018-01-09] MEDS: enoxaparin 60mg/0.6ml syringe SUBCUT SCH (08:10)
[2018-01-09] MEDS: cinacalcet 30mg tablet PO SCH (08:11)
[2018-01-09] MEDS: sevelamer carbonate 800mg tablet PO SCH ×3 (08:11→18:01)
[2018-01-09] MEDS: levoTHYROXINE 100mcg tablet PO SCH (08:11)
[2018-01-09] MEDS: DOBUTamine-DoBUTrex 500mg/D5W 250 ML IV SCH (11:50)
[2018-01-09] MEDS: midodrine tablet 2.5 MG TABLET PO SCH ×2 (13:09→20:39)
[2018-01-09 15:15] LABS: HEMATOCRIT 22.6 % (42.0-52.0); MEAN CORPUSCULAR HEMOGLOBIN 34.6 PG (27.0-31.0); MEAN CORPUSCULAR HGB CONC 35.2 % (33.0-36.5); MEAN CORPUSCULAR VOLUME 98.3 FL (78-98); MEAN PLATELET VOLUME 7.3 FL (7.4-10.4); PLATELET COUNT 207 X10'3 (140-440); RED CELL DISTRIBUTION WIDTH 17.2 % (11.5-14.5); WHITE BLOOD COUNT 10.6 X10'3 (4.5-11.0)
[2018-01-09] MEDS: traZODone 50mg tablet PO SCH (20:44)
[2018-01-10] VITALS (25 sets, daily range): BP systolic 65–103; BP diastolic 48–77
[2018-01-10] MEDS: nafcillin inj 2 GM in normal saline 100ml IV soln 100 ML IV SCH ×7 (00:45→23:31)
[2018-01-10] MEDS: DOBUTamine-DoBUTrex 500mg/D5W 250 ML IV SCH ×2 (01:12→14:34)
[2018-01-10] MEDS: NORepinephrine 8mg/ 250ml NS 250 ML IV PRN (03:09)
[2018-01-10 03:55] LABS: BASOPHILS % (AUTO) 0.4 % (0-1); EOSINOPHILS # (AUTO) 0.1 X10'3 (0-0.9); EOSINOPHILS % (AUTO) 0.8 % (0-6); HEMOGLOBIN 7.6 g/dl (14.0-17.9); LYMPHOCYTES # (AUTO) 1.3 X10'3 (1.1-4.8); LYMPHOCYTES % (AUTO) 12.8 % (21-51); MEAN CORPUSCULAR HEMOGLOBIN 34.5 PG (27.0-31.0); MEAN CORPUSCULAR HGB CONC 34.7 % (33.0-36.5); MEAN CORPUSCULAR VOLUME 99.5 FL (78-98); MONOCYTES # (AUTO) 0.7 X10'3 (0-0.9); MONOCYTES % (AUTO) 7.3 % (2-12); NEUTROPHILS # (AUTO) 8.1 X10'3 (1.8-7.7); NEUTROPHILS % (AUTO) 78.7 % (42-75); PLATELET COUNT 198 X10'3 (140-440); RED BLOOD COUNT 2.21 X10'6 (4.70-6.10); RED CELL DISTRIBUTION WIDTH 16.8 % (11.5-14.5); WHITE BLOOD COUNT 10.2 X10'3 (4.5-11.0)
[2018-01-10 04:05] LABS: INR 1.1 INR; PROTHROMBIN TIME 11.3 SECONDS (9.0-12.0)
[2018-01-10 04:09] LABS: ALANINE AMINOTRANSFERASE 74 U/L (12-78); ALBUMIN 1.6 G/DL (3.4-5.0); ALBUMIN/GLOBULIN RATIO 0.3 (1.1-1.5); ALKALINE PHOSPHATASE 96 IU/L (46-116); ANION GAP 11 (8-16); BILIRUBIN,TOTAL 7.3 MG/DL (0.1-1.0); BLOOD UREA NITROGEN 32 MG/DL (7-18); BUN/CREATININE RATIO 4.8 (5.4-32.0); CALCIUM 9.4 MG/DL (8.5-10.1); CHLORIDE 96 MMOL/L (99-107); CREATININE 6.63 MG/DL (0.60-1.10); GLUCOSE 130 MG/DL (70-104); PHOSPHORUS 3.8 MG/DL (2.3-4.5); SODIUM 133 MMOL/L (135-145); TOTAL CARBON DIOXIDE 26.4 MMOL/L (24-32); TOTAL PROTEIN 6.2 G/DL (6.4-8.2); eGFR 9 ML/MIN
[2018-01-10 04:10] LABS: ASPARTATE AMINO TRANSFERASE 37 U/L (10-37); POTASSIUM 3.5 MMOL/L (3.5-5.1)
[2018-01-10 06:31] LABS: ANISOCYTOSIS 2+; MICROCYTOSIS 1+; PLATELET ESTIMATE NORMAL
[2018-01-10] MEDS: hydrocortisone sod succ/PF 100mg/2ml inj. IV SCH ×2 (07:51→20:22)
[2018-01-10] MEDS: calcitriol 0.25mcg capsule PO SCH (07:51)
[2018-01-10] MEDS: atorvastatin 10mg tablet PO SCH (07:51)
[2018-01-10] MEDS: cinacalcet 30mg tablet PO SCH (07:51)
[2018-01-10] MEDS: enoxaparin 60mg/0.6ml syringe SUBCUT SCH (07:51)
[2018-01-10] MEDS: aspirin 325mg tablet PO SCH (07:52)
[2018-01-10] MEDS: levoTHYROXINE 100mcg tablet PO SCH (07:52)
[2018-01-10] MEDS: midodrine tablet 2.5 MG TABLET PO SCH (07:52)
[2018-01-10] MEDS: sevelamer carbonate 800mg tablet PO SCH ×3 (07:52→17:57)
[2018-01-10] MEDS: docusate sod 100mg capsule PO SCH ×2 (07:52→20:00)
[2018-01-10] MEDS: lactobacillus rhamnosus 10,000 MMU CELLS/CAPSULE PO SCH ×2 (07:52→20:21)
[2018-01-10] MEDS: NUT.TX.IMP.RENAL FXN,LAC-REDUC (Nepro) 237 ML VANILLA PO SCH ×3 (08:03→17:57)
[2018-01-10] MEDS ORDERED: epoetin 20,000 units/ml inj IV ONE (09:05)
[2018-01-10] MEDS ORDERED: heparin 1,000unit/ml 10ml vial 10 ML IV ONE (09:05)
[2018-01-10] MEDS ORDERED: normal saline 1000ml 250 ML IV PRN (09:05)
[2018-01-10] MEDS ORDERED: heparin 1,000 units/ml 10ml inj HE ONE ×2 (09:10)
[2018-01-10] MEDS: midodrine 5mg tablet PO SCH ×2 (13:03→20:22)
[2018-01-10] MEDS: traZODone 50mg tablet PO SCH (20:21)
[2018-01-11] VITALS (25 sets, daily range): BP systolic 76–104; BP diastolic 55–84
[2018-01-11 03:30] LABS: LYMPHOCYTES # (AUTO) 1.7 X10'3 (1.1-4.8); RED BLOOD COUNT 2.31 X10'6 (4.70-6.10)
[2018-01-11 03:38] LABS: BASOPHILS % (AUTO) 0.1 % (0-1); EOSINOPHILS # (AUTO) 0.3 X10'3 (0-0.9); EOSINOPHILS % (AUTO) 2.3 % (0-6); HEMATOCRIT 22.8 % (42.0-52.0); HEMOGLOBIN 8.1 g/dl (14.0-17.9); LYMPHOCYTES % (AUTO) 13.1 % (21-51); MEAN CORPUSCULAR HEMOGLOBIN 34.9 PG (27.0-31.0); MEAN CORPUSCULAR HGB CONC 35.4 % (33.0-36.5); MEAN CORPUSCULAR VOLUME 98.6 FL (78-98); MEAN PLATELET VOLUME 7.9 FL (7.4-10.4); MONOCYTES # (AUTO) 1.3 X10'3 (0-0.9); MONOCYTES % (AUTO) 9.8 % (2-12); NEUTROPHILS % (AUTO) 74.7 % (42-75); PLATELET COUNT 214 X10'3 (140-440); RED CELL DISTRIBUTION WIDTH 17.3 % (11.5-14.5); WHITE BLOOD COUNT 13.4 X10'3 (4.5-11.0)
[2018-01-11] MEDS: nafcillin inj 2 GM in normal saline 100ml IV soln 100 ML IV SCH ×5 (03:44→19:34)
[2018-01-11] MEDS: DOBUTamine-DoBUTrex 500mg/D5W 250 ML IV SCH ×2 (03:56→17:18)
[2018-01-11 03:57] LABS: INR 1.1 INR; PROTHROMBIN TIME 10.9 SECONDS (9.0-12.0)
[2018-01-11 04:28] LABS: NUCLEATED RED BLOOD CELLS 1 /100WBC (0-0); TOTAL CELLS COUNTED 100
[2018-01-11 04:29] LABS: ANISOCYTOSIS 1+; PLATELET ESTIMATE NORMAL; POLYCHROMASIA FEW
[2018-01-11 04:32] LABS: MICROCYTOSIS 1+
[2018-01-11 04:36] LABS: ALANINE AMINOTRANSFERASE 62 U/L (12-78); ALBUMIN 1.7 G/DL (3.4-5.0); ALBUMIN/GLOBULIN RATIO 0.3 (1.1-1.5); ALKALINE PHOSPHATASE 116 IU/L (46-116); ANION GAP 11 (8-16); BLOOD UREA NITROGEN 22 MG/DL (7-18); CALCIUM 9.5 MG/DL (8.5-10.1); CHLORIDE 96 MMOL/L (99-107); CREATININE 4.99 MG/DL (0.60-1.10); GLUCOSE 132 MG/DL (70-104); MAGNESIUM 2.1 MG/DL (1.5-2.4); PHOSPHORUS 2.5 MG/DL (2.3-4.5); SODIUM 133 MMOL/L (135-145); TOTAL CARBON DIOXIDE 26.3 MMOL/L (24-32); TOTAL PROTEIN 6.8 G/DL (6.4-8.2); eGFR 13 ML/MIN
[2018-01-11 04:51] LABS: ASPARTATE AMINO TRANSFERASE 43 U/L (10-37); POTASSIUM 3.3 MMOL/L (3.5-5.1)
[2018-01-11 04:55] LABS: BUN/CREATININE RATIO 4.4 (5.4-32.0)
[2018-01-11] MEDS: NORepinephrine 8mg/ 250ml NS 250 ML IV PRN (06:02)
[2018-01-11 07:18] LABS: HBSAG SCREEN Negative (Negative)
[2018-01-11] MEDS: atorvastatin 10mg tablet PO SCH (07:57)
[2018-01-11] MEDS: lactobacillus rhamnosus 10,000 MMU CELLS/CAPSULE PO SCH ×2 (07:57→19:34)
[2018-01-11] MEDS: levoTHYROXINE 100mcg tablet PO SCH (07:57)
[2018-01-11] MEDS: aspirin 325mg tablet PO SCH (07:57)
[2018-01-11] MEDS: calcitriol 0.25mcg capsule PO SCH (07:57)
[2018-01-11] MEDS: cinacalcet 30mg tablet PO SCH (07:58)
[2018-01-11] MEDS: sevelamer carbonate 800mg tablet PO SCH ×3 (07:58→17:59)
[2018-01-11] MEDS: hydrocortisone sod succ/PF 100mg/2ml inj. IV SCH (07:58)
[2018-01-11] MEDS: midodrine 5mg tablet PO SCH ×3 (07:58→19:34)
[2018-01-11] MEDS: enoxaparin 60mg/0.6ml syringe SUBCUT SCH (07:59)
[2018-01-11] MEDS: docusate sod 100mg capsule PO SCH ×2 (08:00→19:36)
[2018-01-11] MEDS: NUT.TX.IMP.RENAL FXN,LAC-REDUC (Nepro) 237 ML VANILLA PO SCH ×3 (08:03→17:54)
[2018-01-11] MEDS: traZODone 50mg tablet PO SCH (19:34)
[2018-01-11] MEDS: morphine 4 MG/ML inj SYRINge IV PRN (19:35)
[2018-01-12] VITALS (47 sets, daily range): BP systolic 69–99; BP diastolic 50–75
[2018-01-12] MEDS: nafcillin inj 2 GM in normal saline 100ml IV soln 100 ML IV SCH ×7 (00:04→23:30)
[2018-01-12] MEDS: midodrine 5mg tablet PO SCH ×4 (01:12→20:10)
[2018-01-12] MEDS: morphine 4 MG/ML inj SYRINge IV PRN ×2 (01:18→09:45)
[2018-01-12 04:42] LABS: BASOPHILS # (AUTO) 0.1 X10'3 (0-0.2); BASOPHILS % (AUTO) 0.6 % (0-1); EOSINOPHILS # (AUTO) 0.3 X10'3 (0-0.9); EOSINOPHILS % (AUTO) 2.4 % (0-6); HEMATOCRIT 23.4 % (42.0-52.0); HEMOGLOBIN 8.1 g/dl (14.0-17.9); LYMPHOCYTES # (AUTO) 1.6 X10'3 (1.1-4.8); LYMPHOCYTES % (AUTO) 11.8 % (21-51); MEAN CORPUSCULAR HEMOGLOBIN 34.4 PG (27.0-31.0); MEAN CORPUSCULAR HGB CONC 34.5 % (33.0-36.5); MEAN CORPUSCULAR VOLUME 99.6 FL (78-98); MONOCYTES # (AUTO) 1.5 X10'3 (0-0.9); NEUTROPHILS # (AUTO) 10.2 X10'3 (1.8-7.7); NEUTROPHILS % (AUTO) 74.2 % (42-75); PLATELET COUNT 225 X10'3 (140-440); RED BLOOD COUNT 2.35 X10'6 (4.70-6.10); RED CELL DISTRIBUTION WIDTH 17.4 % (11.5-14.5); WHITE BLOOD COUNT 13.8 X10'3 (4.5-11.0)
[2018-01-12] MEDS: DOBUTamine-DoBUTrex 500mg/D5W 250 ML IV SCH ×2 (04:50→20:02)
[2018-01-12 04:51] LABS: PROTHROMBIN TIME 10.8 SECONDS (9.0-12.0)
[2018-01-12 05:06] LABS: ALANINE AMINOTRANSFERASE 55 U/L (12-78); ALBUMIN 1.8 G/DL (3.4-5.0); ALBUMIN/GLOBULIN RATIO 0.4 (1.1-1.5); ALKALINE PHOSPHATASE 92 IU/L (46-116); ANION GAP 10 (8-16); BILIRUBIN,TOTAL 5.6 MG/DL (0.1-1.0); BLOOD UREA NITROGEN 31 MG/DL (7-18); CALCIUM 9.7 MG/DL (8.5-10.1); CHLORIDE 95 MMOL/L (99-107); CREATININE 6.22 MG/DL (0.60-1.10); GLUCOSE 109 MG/DL (70-104); MAGNESIUM 2.2 MG/DL (1.5-2.4); PHOSPHORUS 3.2 MG/DL (2.3-4.5); SODIUM 132 MMOL/L (135-145); TOTAL CARBON DIOXIDE 26.6 MMOL/L (24-32); TOTAL PROTEIN 6.9 G/DL (6.4-8.2); eGFR 10 ML/MIN
[2018-01-12 05:49] LABS: POTASSIUM 3.7 MMOL/L (3.5-5.1)
[2018-01-12 06:23] LABS: ASPARTATE AMINO TRANSFERASE 61 U/L (10-37)
[2018-01-12] MEDS: NUT.TX.IMP.RENAL FXN,LAC-REDUC (Nepro) 237 ML VANILLA PO SCH ×3 (08:00→18:51)
[2018-01-12] MEDS: docusate sod 100mg capsule PO SCH ×2 (08:00→20:00)
[2018-01-12] MEDS ORDERED: normal saline 1000ml 250 ML IV PRN (09:00)
[2018-01-12] MEDS ORDERED: epoetin 20,000 units/ml inj IV ONE (09:00)
[2018-01-12] MEDS ORDERED: heparin 1,000unit/ml 10ml vial 10 ML IV ONE (09:00)
[2018-01-12] MEDS ORDERED: heparin 1,000 units/ml 10ml inj HE ONE ×2 (09:05)
[2018-01-12] MEDS: levoTHYROXINE 100mcg tablet PO SCH (09:29)
[2018-01-12] MEDS: calcitriol 0.25mcg capsule PO SCH (09:30)
[2018-01-12] MEDS: cinacalcet 30mg tablet PO SCH (09:30)
[2018-01-12] MEDS: aspirin 325mg tablet PO SCH (09:31)
[2018-01-12] MEDS: lactobacillus rhamnosus 10,000 MMU CELLS/CAPSULE PO SCH ×2 (09:31→20:10)
[2018-01-12] MEDS: atorvastatin 10mg tablet PO SCH (09:31)
[2018-01-12] MEDS: enoxaparin 60mg/0.6ml syringe SUBCUT SCH (09:32)
[2018-01-12] MEDS: sevelamer carbonate 800mg tablet PO SCH ×3 (09:55→17:54)
[2018-01-12 10:03] LABS: NUCLEATED RED BLOOD CELLS 1 /100WBC (0-0); TOTAL CELLS COUNTED 100
[2018-01-12 10:13] LABS: PLATELET ESTIMATE NORMAL
[2018-01-12 10:14] LABS: MICROCYTOSIS 1+; POLYCHROMASIA 1+
[2018-01-12 10:15] LABS: LARGE PLATELETS FEW
[2018-01-12 10:16] LABS: ANISOCYTOSIS 3+
[2018-01-12 10:17] LABS: SMUDGE CELLS 1+
[2018-01-12] MEDS ORDERED: albumin (human) 25% 100ml IV 100 ML IV PRN ×2 (10:50)
[2018-01-12] MEDS: oxyCODONE IR 5mg (immed. release) tablet PO PRN ×2 (14:16→17:54)
[2018-01-12] MEDS: traZODone 50mg tablet PO SCH (20:10)
[2018-01-13] VITALS (23 sets, daily range): BP systolic 72–93; BP diastolic 46–65
[2018-01-13] MEDS: midodrine 5mg tablet PO SCH ×4 (01:29→21:07)
[2018-01-13] MEDS: oxyCODONE IR 5mg (immed. release) tablet PO PRN ×4 (01:30→17:10)
[2018-01-13 03:45] LABS: BASOPHILS # (AUTO) 0.1 X10'3 (0-0.2); BASOPHILS % (AUTO) 0.4 % (0-1); EOSINOPHILS # (AUTO) 0.4 X10'3 (0-0.9); EOSINOPHILS % (AUTO) 2.8 % (0-6); LYMPHOCYTES # (AUTO) 1.4 X10'3 (1.1-4.8); LYMPHOCYTES % (AUTO) 11.2 % (21-51); MEAN CORPUSCULAR HEMOGLOBIN 35.6 PG (27.0-31.0); MEAN CORPUSCULAR HGB CONC 35.1 % (33.0-36.5); MEAN CORPUSCULAR VOLUME 101.4 FL (78-98); MEAN PLATELET VOLUME 8.1 FL (7.4-10.4); MONOCYTES # (AUTO) 1.3 X10'3 (0-0.9); MONOCYTES % (AUTO) 10.8 % (2-12); NEUTROPHILS # (AUTO) 9.3 X10'3 (1.8-7.7); NEUTROPHILS % (AUTO) 74.8 % (42-75); PLATELET COUNT 175 X10'3 (140-440); RED CELL DISTRIBUTION WIDTH 17.3 % (11.5-14.5); WHITE BLOOD COUNT 12.4 X10'3 (4.5-11.0)
[2018-01-13 03:54] LABS: HEMATOCRIT 20.3 % (42.0-52.0); HEMOGLOBIN 7.1 g/dl (14.0-17.9)
[2018-01-13 03:57] LABS: PROTHROMBIN TIME 10.8 SECONDS (9.0-12.0)
[2018-01-13 04:06] LABS: ALANINE AMINOTRANSFERASE 49 U/L (12-78); ALBUMIN 2.3 G/DL (3.4-5.0); ALBUMIN/GLOBULIN RATIO 0.5 (1.1-1.5); ALKALINE PHOSPHATASE 90 IU/L (46-116); ANION GAP 10 (8-16); ASPARTATE AMINO TRANSFERASE 33 U/L (10-37); BILIRUBIN,TOTAL 5.1 MG/DL (0.1-1.0); BLOOD UREA NITROGEN 23 MG/DL (7-18); CALCIUM 9.8 MG/DL (8.5-10.1); CHLORIDE 96 MMOL/L (99-107); CREATININE 4.85 MG/DL (0.60-1.10); GLUCOSE 91 MG/DL (70-104); MAGNESIUM 2.1 MG/DL (1.5-2.4); PHOSPHORUS 2.7 MG/DL (2.3-4.5); SODIUM 135 MMOL/L (135-145); TOTAL CARBON DIOXIDE 28.6 MMOL/L (24-32); eGFR 14 ML/MIN
[2018-01-13 04:07] LABS: BUN/CREATININE RATIO 4.7 (5.4-32.0)
[2018-01-13] MEDS: nafcillin inj 2 GM in normal saline 100ml IV soln 100 ML IV SCH ×5 (04:29→21:08)
[2018-01-13 04:31] LABS: ANISOCYTOSIS 1+; NUCLEATED RED BLOOD CELLS 1 /100WBC (0-0); PLATELET ESTIMATE NORMAL; POLYCHROMASIA 1+; TOTAL CELLS COUNTED 100
[2018-01-13] MEDS: docusate sod 100mg capsule PO SCH ×2 (08:00→20:00)
[2018-01-13] MEDS: NUT.TX.IMP.RENAL FXN,LAC-REDUC (Nepro) 237 ML VANILLA PO SCH ×3 (08:00→20:00)
[2018-01-13] MEDS: levoTHYROXINE 100mcg tablet PO SCH (08:24)
[2018-01-13] MEDS: sevelamer carbonate 800mg tablet PO SCH ×3 (08:25→18:03)
[2018-01-13] MEDS: cinacalcet 30mg tablet PO SCH (08:29)
[2018-01-13] MEDS: aspirin 325mg tablet PO SCH (08:29)
[2018-01-13] MEDS: lactobacillus rhamnosus 10,000 MMU CELLS/CAPSULE PO SCH ×2 (08:29→21:07)
[2018-01-13] MEDS: atorvastatin 10mg tablet PO SCH (08:29)
[2018-01-13] MEDS: calcitriol 0.25mcg capsule PO SCH (08:30)
[2018-01-13] MEDS: enoxaparin 60mg/0.6ml syringe SUBCUT SCH (08:31)
[2018-01-13] MEDS: DOBUTamine-DoBUTrex 500mg/D5W 250 ML IV SCH ×2 (09:24→22:46)
[2018-01-13 11:53] LABS: % IRON SATURATION 101 % (11-46); IRON 168 UG/DL (53-167); TOTAL IRON BINDING CAPACITY 167 UG/DL (259-388)
[2018-01-13] MEDS ORDERED: NORepinephrine 8mg/ 250ml NS 250 ML IV PRN (12:02)
[2018-01-13] MEDS: folic acid 1mg tablet PO SCH (12:40)
[2018-01-13] MEDS: traZODone 50mg tablet PO SCH (21:07)
[2018-01-14] VITALS (25 sets, daily range): BP systolic 77–96; BP diastolic 51–66
[2018-01-14] MEDS: nafcillin inj 2 GM in normal saline 100ml IV soln 100 ML IV SCH ×6 (00:39→20:34)
[2018-01-14] MEDS: midodrine 5mg tablet PO SCH ×4 (02:33→20:34)
[2018-01-14 06:36] LABS: BASOPHILS # (AUTO) 0.1 X10'3 (0-0.2); BASOPHILS % (AUTO) 0.5 % (0-1); EOSINOPHILS # (AUTO) 0.3 X10'3 (0-0.9); EOSINOPHILS % (AUTO) 2.7 % (0-6); LYMPHOCYTES # (AUTO) 1.2 X10'3 (1.1-4.8); LYMPHOCYTES % (AUTO) 9.6 % (21-51); MEAN CORPUSCULAR HEMOGLOBIN 35.6 PG (27.0-31.0); MEAN CORPUSCULAR HGB CONC 35.3 % (33.0-36.5); MEAN CORPUSCULAR VOLUME 100.9 FL (78-98); MEAN PLATELET VOLUME 7.7 FL (7.4-10.4); MONOCYTES # (AUTO) 1.2 X10'3 (0-0.9); MONOCYTES % (AUTO) 9.4 % (2-12); NEUTROPHILS # (AUTO) 9.7 X10'3 (1.8-7.7); NEUTROPHILS % (AUTO) 77.8 % (42-75); PLATELET COUNT 189 X10'3 (140-440); RED BLOOD COUNT 1.94 X10'6 (4.70-6.10); RED CELL DISTRIBUTION WIDTH 17.1 % (11.5-14.5); WHITE BLOOD COUNT 12.5 X10'3 (4.5-11.0)
[2018-01-14 06:40] LABS: HEMATOCRIT 19.6 % (42.0-52.0); HEMOGLOBIN 6.9 g/dl (14.0-17.9)
[2018-01-14 06:48] LABS: INR 1.1 INR; PROTHROMBIN TIME 11.1 SECONDS (9.0-12.0)
[2018-01-14 06:54] LABS: ALANINE AMINOTRANSFERASE 37 U/L (12-78); ALBUMIN/GLOBULIN RATIO 0.4 (1.1-1.5); ALKALINE PHOSPHATASE 83 IU/L (46-116); ANION GAP 13 (8-16); ASPARTATE AMINO TRANSFERASE 29 U/L (10-37); BILIRUBIN,TOTAL 5.1 MG/DL (0.1-1.0); BLOOD UREA NITROGEN 30 MG/DL (7-18); BUN/CREATININE RATIO 5.1 (5.4-32.0); CALCIUM 9.8 MG/DL (8.5-10.1); CHLORIDE 95 MMOL/L (99-107); CREATININE 5.94 MG/DL (0.60-1.10); GLUCOSE 84 MG/DL (70-104); MAGNESIUM 2.1 MG/DL (1.5-2.4); PHOSPHORUS 3.2 MG/DL (2.3-4.5); POTASSIUM 4.2 MMOL/L (3.5-5.1); SODIUM 134 MMOL/L (135-145); TOTAL CARBON DIOXIDE 26.4 MMOL/L (24-32); TOTAL PROTEIN 6.6 G/DL (6.4-8.2); eGFR 11 ML/MIN
[2018-01-14] MEDS ORDERED: albumin (human) 25% 100ml IV 100 ML IV PRN (08:00)
[2018-01-14] MEDS: NUT.TX.IMP.RENAL FXN,LAC-REDUC (Nepro) 237 ML VANILLA PO SCH ×3 (08:00→18:00)
[2018-01-14] MEDS: docusate sod 100mg capsule PO SCH ×2 (08:00→20:00)
[2018-01-14] MEDS ORDERED: epoetin 20,000 units/ml inj IV ONE (08:00)
[2018-01-14] MEDS ORDERED: heparin 1,000unit/ml 10ml vial 10 ML IV ONE (08:00)
[2018-01-14] MEDS ORDERED: heparin 1,000 units/ml 10ml inj HE ONE ×2 (08:00)
[2018-01-14] MEDS ORDERED: albumin (human) 25% 100 ML IV solution IV ONE (08:00)
[2018-01-14] MEDS: cinacalcet 30mg tablet PO SCH (09:17)
[2018-01-14] MEDS: multivitamins, therapeutics tablet PO SCH (09:17)
[2018-01-14] MEDS: calcitriol 0.25mcg capsule PO SCH (09:17)
[2018-01-14] MEDS: sevelamer carbonate 800mg tablet PO SCH ×3 (09:17→17:36)
[2018-01-14] MEDS: oxyCODONE IR 5mg (immed. release) tablet PO PRN ×4 (09:18→22:11)
[2018-01-14] MEDS: folic acid 1mg tablet PO SCH (09:18)
[2018-01-14] MEDS: atorvastatin 10mg tablet PO SCH (09:18)
[2018-01-14] MEDS: lactobacillus rhamnosus 10,000 MMU CELLS/CAPSULE PO SCH ×2 (09:18→20:33)
[2018-01-14] MEDS: aspirin 325mg tablet PO SCH (09:19)
[2018-01-14] MEDS: levoTHYROXINE 100mcg tablet PO SCH (09:19)
[2018-01-14] MEDS: enoxaparin 60mg/0.6ml syringe SUBCUT SCH (09:21)
[2018-01-14] MEDS: traZODone 50mg tablet PO SCH (20:33)
[2018-01-15] VITALS (19 sets, daily range): BP systolic 84–107; BP diastolic 57–76
[2018-01-15] MEDS: nafcillin inj 2 GM in normal saline 100ml IV soln 100 ML IV SCH ×6 (00:16→20:33)
[2018-01-15] MEDS: midodrine 5mg tablet PO SCH ×4 (02:32→20:32)
[2018-01-15 03:47] LABS: BASOPHILS % (AUTO) 0.3 % (0-1); EOSINOPHILS # (AUTO) 0.3 X10'3 (0-0.9); EOSINOPHILS % (AUTO) 2.9 % (0-6); HEMOGLOBIN 7.4 g/dl (14.0-17.9); LYMPHOCYTES # (AUTO) 1.2 X10'3 (1.1-4.8); LYMPHOCYTES % (AUTO) 10.5 % (21-51); MEAN CORPUSCULAR HEMOGLOBIN 35.1 PG (27.0-31.0); MEAN CORPUSCULAR HGB CONC 34.9 % (33.0-36.5); MEAN CORPUSCULAR VOLUME 100.7 FL (78-98); MEAN PLATELET VOLUME 7.7 FL (7.4-10.4); MONOCYTES # (AUTO) 1.2 X10'3 (0-0.9); MONOCYTES % (AUTO) 10.5 % (2-12); NEUTROPHILS # (AUTO) 8.5 X10'3 (1.8-7.7); NEUTROPHILS % (AUTO) 75.8 % (42-75); PLATELET COUNT 176 X10'3 (140-440); RED CELL DISTRIBUTION WIDTH 16.5 % (11.5-14.5); WHITE BLOOD COUNT 11.2 X10'3 (4.5-11.0)
[2018-01-15 03:52] LABS: INR 1.1 INR; PROTHROMBIN TIME 11.3 SECONDS (9.0-12.0)
[2018-01-15 04:01] LABS: HEMATOCRIT 21.2 % (42.0-52.0)
[2018-01-15 04:04] LABS: ANION GAP 12 (8-16); BLOOD UREA NITROGEN 18 MG/DL (7-18); CHLORIDE 100 MMOL/L (99-107); CREATININE 4.19 MG/DL (0.60-1.10); GLUCOSE 88 MG/DL (70-104); POTASSIUM 3.4 MMOL/L (3.5-5.1); SODIUM 136 MMOL/L (135-145); TOTAL CARBON DIOXIDE 24.5 MMOL/L (24-32)
[2018-01-15 04:05] LABS: ALANINE AMINOTRANSFERASE 28 U/L (12-78); ALBUMIN 1.8 G/DL (3.4-5.0); ALBUMIN/GLOBULIN RATIO 0.4 (1.1-1.5); ALKALINE PHOSPHATASE 87 IU/L (46-116); ASPARTATE AMINO TRANSFERASE 21 U/L (10-37); BILIRUBIN,TOTAL 4.2 MG/DL (0.1-1.0); BUN/CREATININE RATIO 4.3 (5.4-32.0); CALCIUM 8.5 MG/DL (8.5-10.1); MAGNESIUM 1.9 MG/DL (1.5-2.4); PHOSPHORUS 2.4 MG/DL (2.3-4.5); TOTAL PROTEIN 6.1 G/DL (6.4-8.2); eGFR 16 ML/MIN
[2018-01-15 06:11] LABS: ANISOCYTOSIS 1+; NUCLEATED RED BLOOD CELLS 1 /100WBC (0-0); PLATELET ESTIMATE NORMAL; POLYCHROMASIA FEW; TOTAL CELLS COUNTED 100
[2018-01-15] MEDS: lactobacillus rhamnosus 10,000 MMU CELLS/CAPSULE PO SCH ×2 (07:24→20:32)
[2018-01-15] MEDS: enoxaparin 60mg/0.6ml syringe SUBCUT SCH (07:24)
[2018-01-15] MEDS: multivitamins, therapeutics tablet PO SCH (07:24)
[2018-01-15] MEDS: calcitriol 0.25mcg capsule PO SCH (07:24)
[2018-01-15] MEDS: docusate sod 100mg capsule PO SCH ×2 (07:24→20:00)
[2018-01-15] MEDS: atorvastatin 10mg tablet PO SCH (07:24)
[2018-01-15] MEDS: levoTHYROXINE 100mcg tablet PO SCH (07:24)
[2018-01-15] MEDS: cinacalcet 30mg tablet PO SCH (07:24)
[2018-01-15] MEDS: folic acid 1mg tablet PO SCH (07:24)
[2018-01-15] MEDS: aspirin 325mg tablet PO SCH (07:24)
[2018-01-15] MEDS: sevelamer carbonate 800mg tablet PO SCH ×3 (07:25→19:12)
[2018-01-15] MEDS: NUT.TX.IMP.RENAL FXN,LAC-REDUC (Nepro) 237 ML VANILLA PO SCH ×3 (08:47→18:00)
[2018-01-15] MEDS: traZODone 50mg tablet PO SCH (20:32)
[2018-01-15] MEDS: oxyCODONE IR 5mg (immed. release) tablet PO PRN (22:45)
[2018-01-16] MEDS: nafcillin inj 2 GM in normal saline 100ml IV soln 100 ML IV SCH ×6 (00:43→20:51)
[2018-01-16] MEDS: midodrine 5mg tablet PO SCH ×4 (02:16→20:51)
[2018-01-16 03:00] VITALS: BP 102/63
[2018-01-16 06:00] VITALS: BP 97/63
[2018-01-16] MEDS: multivitamins, therapeutics tablet PO SCH (07:40)
[2018-01-16] MEDS: lactobacillus rhamnosus 10,000 MMU CELLS/CAPSULE PO SCH ×2 (07:40→20:51)
[2018-01-16] MEDS: oxyCODONE IR 5mg (immed. release) tablet PO PRN ×2 (07:40→12:30)
[2018-01-16] MEDS: enoxaparin 60mg/0.6ml syringe SUBCUT SCH (07:40)
[2018-01-16] MEDS: folic acid 1mg tablet PO SCH (07:40)
[2018-01-16] MEDS: atorvastatin 10mg tablet PO SCH (07:40)
[2018-01-16] MEDS: aspirin 325mg tablet PO SCH (07:41)
[2018-01-16] MEDS: cinacalcet 30mg tablet PO SCH (07:41)
[2018-01-16] MEDS: calcitriol 0.25mcg capsule PO SCH (07:42)
[2018-01-16] MEDS: sevelamer carbonate 800mg tablet PO SCH ×3 (07:42→18:00)
[2018-01-16] MEDS: levoTHYROXINE 100mcg tablet PO SCH (07:42)
[2018-01-16] MEDS: docusate sod 100mg capsule PO SCH ×2 (07:59→20:00)
[2018-01-16] MEDS: NUT.TX.IMP.RENAL FXN,LAC-REDUC (Nepro) 237 ML VANILLA PO SCH ×3 (07:59→18:00)
[2018-01-16 09:08] LABS: BASOPHILS # (AUTO) 0.1 X10'3 (0-0.2); BASOPHILS % (AUTO) 0.7 % (0-1); EOSINOPHILS # (AUTO) 0.3 X10'3 (0-0.9); EOSINOPHILS % (AUTO) 3.1 % (0-6); HEMATOCRIT 24.4 % (42.0-52.0); HEMOGLOBIN 8.4 g/dl (14.0-17.9); LYMPHOCYTES % (AUTO) 9.9 % (21-51); MEAN CORPUSCULAR HEMOGLOBIN 35.4 PG (27.0-31.0); MEAN CORPUSCULAR HGB CONC 34.3 % (33.0-36.5); MEAN CORPUSCULAR VOLUME 103.2 FL (78-98); MEAN PLATELET VOLUME 7.4 FL (7.4-10.4); MONOCYTES % (AUTO) 9.7 % (2-12); NEUTROPHILS # (AUTO) 7.6 X10'3 (1.8-7.7); NEUTROPHILS % (AUTO) 76.6 % (42-75); PLATELET COUNT 212 X10'3 (140-440); RED BLOOD COUNT 2.37 X10'6 (4.70-6.10); WHITE BLOOD COUNT 9.9 X10'3 (4.5-11.0)
[2018-01-16 11:00] VITALS: BP 99/71
[2018-01-16 15:00] VITALS: BP 91/56
[2018-01-16 16:42] LABS: INR 1.1 INR; PROTHROMBIN TIME 10.9 SECONDS (9.0-12.0)
[2018-01-16 16:48] LABS: ALANINE AMINOTRANSFERASE 27 U/L (12-78); ALBUMIN 1.9 G/DL (3.4-5.0); ALBUMIN/GLOBULIN RATIO 0.4 (1.1-1.5); ALKALINE PHOSPHATASE 109 IU/L (46-116); ANION GAP 10 (8-16); ASPARTATE AMINO TRANSFERASE 24 U/L (10-37); BILIRUBIN,TOTAL 4.4 MG/DL (0.1-1.0); BLOOD UREA NITROGEN 28 MG/DL (7-18); BUN/CREATININE RATIO 4.7 (5.4-32.0); CALCIUM 9.3 MG/DL (8.5-10.1); CHLORIDE 96 MMOL/L (99-107); CREATININE 6.01 MG/DL (0.60-1.10); GLUCOSE 101 MG/DL (70-104); MAGNESIUM 2.2 MG/DL (1.5-2.4); PHOSPHORUS 3.6 MG/DL (2.3-4.5); POTASSIUM 3.9 MMOL/L (3.5-5.1); SODIUM 132 MMOL/L (135-145); TOTAL CARBON DIOXIDE 26.1 MMOL/L (24-32); TOTAL PROTEIN 6.8 G/DL (6.4-8.2); eGFR 11 ML/MIN
[2018-01-16 19:00] VITALS: BP 111/70
[2018-01-16] MEDS: traZODone 50mg tablet PO SCH (20:51)
[2018-01-16 23:00] VITALS: BP 88/57
[2018-01-17] MEDS: midodrine 5mg tablet PO SCH ×4 (02:18→20:33)
[2018-01-17 03:00] VITALS: BP 93/61
[2018-01-17] MEDS: nafcillin inj 2 GM in normal saline 100ml IV soln 100 ML IV SCH ×7 (04:12→20:33)
[2018-01-17 06:49] VITALS: BP 99/64
[2018-01-17] MEDS: docusate sod 100mg capsule PO SCH ×2 (07:11→20:00)
[2018-01-17] MEDS: calcitriol 0.25mcg capsule PO SCH (07:11)
[2018-01-17] MEDS: aspirin 325mg tablet PO SCH (07:11)
[2018-01-17] MEDS: lactobacillus rhamnosus 10,000 MMU CELLS/CAPSULE PO SCH ×2 (07:11→20:33)
[2018-01-17] MEDS: sevelamer carbonate 800mg tablet PO SCH ×4 (07:11→17:54)
[2018-01-17] MEDS: atorvastatin 10mg tablet PO SCH (07:11)
[2018-01-17] MEDS: multivitamins, therapeutics tablet PO SCH (07:11)
[2018-01-17] MEDS: folic acid 1mg tablet PO SCH (07:12)
[2018-01-17] MEDS: enoxaparin 60mg/0.6ml syringe SUBCUT SCH (07:12)
[2018-01-17] MEDS: levoTHYROXINE 100mcg tablet PO SCH (07:12)
[2018-01-17] MEDS: cinacalcet 30mg tablet PO SCH (07:16)
[2018-01-17] MEDS: NUT.TX.IMP.RENAL FXN,LAC-REDUC (Nepro) 237 ML VANILLA PO SCH ×3 (07:24→17:54)
[2018-01-17] MEDS ORDERED: normal saline 1000ml 250 ML IV PRN (08:00)
[2018-01-17] MEDS ORDERED: heparin 1,000 units/ml 10ml inj HE ONE ×2 (08:00)
[2018-01-17] MEDS ORDERED: heparin 1,000unit/ml 10ml vial 10 ML IV ONE (08:00)
[2018-01-17] MEDS ORDERED: epoetin 20,000 units/ml inj IV ONE (08:00)
[2018-01-17 10:39] LABS: BASOPHILS # (AUTO) 0.1 X10'3 (0-0.2); BASOPHILS % (AUTO) 0.9 % (0-1); EOSINOPHILS # (AUTO) 0.2 X10'3 (0-0.9); EOSINOPHILS % (AUTO) 2.1 % (0-6); HEMATOCRIT 23.9 % (42.0-52.0); HEMOGLOBIN 8.4 g/dl (14.0-17.9); LYMPHOCYTES # (AUTO) 0.9 X10'3 (1.1-4.8); LYMPHOCYTES % (AUTO) 9.9 % (21-51); MEAN CORPUSCULAR HEMOGLOBIN 36.3 PG (27.0-31.0); MEAN CORPUSCULAR HGB CONC 35.2 % (33.0-36.5); MEAN CORPUSCULAR VOLUME 103.1 FL (78-98); MEAN PLATELET VOLUME 7.6 FL (7.4-10.4); MONOCYTES # (AUTO) 0.9 X10'3 (0-0.9); MONOCYTES % (AUTO) 10.1 % (2-12); NEUTROPHILS # (AUTO) 7.2 X10'3 (1.8-7.7); PLATELET COUNT 204 X10'3 (140-440); RED BLOOD COUNT 2.32 X10'6 (4.70-6.10); RED CELL DISTRIBUTION WIDTH 15.4 % (11.5-14.5); WHITE BLOOD COUNT 9.3 X10'3 (4.5-11.0)
[2018-01-17 10:47] LABS: INR 1.1 INR; PROTHROMBIN TIME 11.5 SECONDS (9.0-12.0)
[2018-01-17 10:58] LABS: ALANINE AMINOTRANSFERASE 32 U/L (12-78); ALBUMIN 1.8 G/DL (3.4-5.0); ALBUMIN/GLOBULIN RATIO 0.4 (1.1-1.5); ALKALINE PHOSPHATASE 95 IU/L (46-116); ANION GAP 13 (8-16); ASPARTATE AMINO TRANSFERASE 23 U/L (10-37); BILIRUBIN,TOTAL 4.3 MG/DL (0.1-1.0); BLOOD UREA NITROGEN 29 MG/DL (7-18); BUN/CREATININE RATIO 4.4 (5.4-32.0); CALCIUM 9.4 MG/DL (8.5-10.1); CHLORIDE 94 MMOL/L (99-107); CREATININE 6.61 MG/DL (0.60-1.10); GLUCOSE 90 MG/DL (70-104); MAGNESIUM 2.3 MG/DL (1.5-2.4); PHOSPHORUS 3.9 MG/DL (2.3-4.5); SODIUM 133 MMOL/L (135-145); TOTAL CARBON DIOXIDE 25.6 MMOL/L (24-32); TOTAL PROTEIN 6.5 G/DL (6.4-8.2); eGFR 9 ML/MIN
[2018-01-17 11:11] VITALS: BP 101/64
[2018-01-17 15:39] VITALS: BP 88/50
[2018-01-17] MEDS: oxyCODONE IR 5mg (immed. release) tablet PO PRN ×2 (17:53→21:54)
[2018-01-17 19:00] VITALS: BP 101/64
[2018-01-17] MEDS: traZODone 50mg tablet PO SCH (20:33)
[2018-01-17 23:00] VITALS: BP 86/59
[2018-01-18] MEDS: nafcillin inj 2 GM in normal saline 100ml IV soln 100 ML IV SCH ×6 (00:08→20:20)
[2018-01-18 03:00] VITALS: BP 92/64
[2018-01-18 03:16] LABS: BASOPHILS % (AUTO) 0.3 % (0-1); EOSINOPHILS # (AUTO) 0.3 X10'3 (0-0.9); EOSINOPHILS % (AUTO) 3.3 % (0-6); HEMATOCRIT 23.8 % (42.0-52.0); HEMOGLOBIN 8.2 g/dl (14.0-17.9); LYMPHOCYTES # (AUTO) 0.9 X10'3 (1.1-4.8); LYMPHOCYTES % (AUTO) 11.2 % (21-51); MEAN CORPUSCULAR HGB CONC 34.5 % (33.0-36.5); MEAN CORPUSCULAR VOLUME 104.4 FL (78-98); MEAN PLATELET VOLUME 7.1 FL (7.4-10.4); MONOCYTES # (AUTO) 0.9 X10'3 (0-0.9); MONOCYTES % (AUTO) 10.4 % (2-12); NEUTROPHILS # (AUTO) 6.2 X10'3 (1.8-7.7); NEUTROPHILS % (AUTO) 74.8 % (42-75); PLATELET COUNT 191 X10'3 (140-440); RED BLOOD COUNT 2.28 X10'6 (4.70-6.10); RED CELL DISTRIBUTION WIDTH 16.6 % (11.5-14.5); WHITE BLOOD COUNT 8.2 X10'3 (4.5-11.0)
[2018-01-18 03:48] LABS: PROTHROMBIN TIME 10.7 SECONDS (9.0-12.0)
[2018-01-18 03:57] LABS: ALANINE AMINOTRANSFERASE 25 U/L (12-78); ALBUMIN 1.7 G/DL (3.4-5.0); ALBUMIN/GLOBULIN RATIO 0.4 (1.1-1.5); ALKALINE PHOSPHATASE 100 IU/L (46-116); ANION GAP 8 (8-16); ASPARTATE AMINO TRANSFERASE 22 U/L (10-37); BILIRUBIN,TOTAL 3.9 MG/DL (0.1-1.0); BLOOD UREA NITROGEN 21 MG/DL (7-18); CALCIUM 9.1 MG/DL (8.5-10.1); CHLORIDE 97 MMOL/L (99-107); CREATININE 5.19 MG/DL (0.60-1.10); GLUCOSE 93 MG/DL (70-104); MAGNESIUM 2.1 MG/DL (1.5-2.4); PHOSPHORUS 3.1 MG/DL (2.3-4.5); POTASSIUM 3.6 MMOL/L (3.5-5.1); SODIUM 133 MMOL/L (135-145); TOTAL CARBON DIOXIDE 28.5 MMOL/L (24-32); TOTAL PROTEIN 6.3 G/DL (6.4-8.2); eGFR 13 ML/MIN
[2018-01-18 06:00] VITALS: BP 99/68
[2018-01-18] MEDS: enoxaparin 60mg/0.6ml syringe SUBCUT SCH (08:00)
[2018-01-18] MEDS: docusate sod 100mg capsule PO SCH ×2 (08:00→20:00)
[2018-01-18] MEDS: multivitamins, therapeutics tablet PO SCH (08:08)
[2018-01-18] MEDS: aspirin 325mg tablet PO SCH (08:08)
[2018-01-18] MEDS: levoTHYROXINE 100mcg tablet PO SCH (08:08)
[2018-01-18] MEDS: lactobacillus rhamnosus 10,000 MMU CELLS/CAPSULE PO SCH ×2 (08:08→20:20)
[2018-01-18] MEDS: atorvastatin 10mg tablet PO SCH (08:09)
[2018-01-18] MEDS: midodrine 5mg tablet PO SCH ×3 (08:09→20:20)
[2018-01-18] MEDS: calcitriol 0.25mcg capsule PO SCH (08:09)
[2018-01-18] MEDS: sevelamer carbonate 800mg tablet PO SCH ×3 (08:09→18:25)
[2018-01-18] MEDS: cinacalcet 30mg tablet PO SCH (08:09)
[2018-01-18] MEDS: folic acid 1mg tablet PO SCH (08:09)
[2018-01-18] MEDS: NUT.TX.IMP.RENAL FXN,LAC-REDUC (Nepro) 237 ML VANILLA PO SCH ×3 (08:16→18:25)
[2018-01-18] MEDS: oxyCODONE IR 5mg (immed. release) tablet PO PRN ×3 (11:01→20:21)
[2018-01-18 15:00] VITALS: BP 104/66
[2018-01-18 19:00] VITALS: BP 103/62
[2018-01-18] MEDS: traZODone 50mg tablet PO SCH (20:20)
[2018-01-18 23:00] VITALS: BP 97/57
[2018-01-19] MEDS: nafcillin inj 2 GM in normal saline 100ml IV soln 100 ML IV SCH ×5 (00:08→16:33)
[2018-01-19] MEDS: oxyCODONE IR 5mg (immed. release) tablet PO PRN ×3 (01:35→12:55)
[2018-01-19 03:00] VITALS: BP 93/58
[2018-01-19 03:03] LABS: BASOPHILS # (AUTO) 0.1 X10'3 (0-0.2); BASOPHILS % (AUTO) 0.9 % (0-1); EOSINOPHILS # (AUTO) 0.3 X10'3 (0-0.9); EOSINOPHILS % (AUTO) 3.8 % (0-6); HEMATOCRIT 23.8 % (42.0-52.0); HEMOGLOBIN 8.2 g/dl (14.0-17.9); LYMPHOCYTES % (AUTO) 14.8 % (21-51); MEAN CORPUSCULAR HEMOGLOBIN 36.3 PG (27.0-31.0); MEAN CORPUSCULAR HGB CONC 34.5 % (33.0-36.5); MEAN CORPUSCULAR VOLUME 105.1 FL (78-98); MEAN PLATELET VOLUME 7.1 FL (7.4-10.4); MONOCYTES # (AUTO) 0.8 X10'3 (0-0.9); MONOCYTES % (AUTO) 11.9 % (2-12); NEUTROPHILS # (AUTO) 4.7 X10'3 (1.8-7.7); NEUTROPHILS % (AUTO) 68.6 % (42-75); PLATELET COUNT 179 X10'3 (140-440); RED BLOOD COUNT 2.26 X10'6 (4.70-6.10); RED CELL DISTRIBUTION WIDTH 16.8 % (11.5-14.5); WHITE BLOOD COUNT 6.9 X10'3 (4.5-11.0)
[2018-01-19 03:13] LABS: INR 1.1 INR; PROTHROMBIN TIME 10.9 SECONDS (9.0-12.0)
[2018-01-19 04:12] LABS: ALANINE AMINOTRANSFERASE 29 U/L (12-78); ALBUMIN 1.7 G/DL (3.4-5.0); ALBUMIN/GLOBULIN RATIO 0.4 (1.1-1.5); ALKALINE PHOSPHATASE 94 IU/L (46-116); ANION GAP 10 (8-16); ASPARTATE AMINO TRANSFERASE 27 U/L (10-37); BILIRUBIN,TOTAL 3.9 MG/DL (0.1-1.0); BLOOD UREA NITROGEN 27 MG/DL (7-18); BUN/CREATININE RATIO 4.4 (5.4-32.0); CALCIUM 9.1 MG/DL (8.5-10.1); CHLORIDE 97 MMOL/L (99-107); CREATININE 6.08 MG/DL (0.60-1.10); GLUCOSE 95 MG/DL (70-104); MAGNESIUM 2.2 MG/DL (1.5-2.4); PHOSPHORUS 3.6 MG/DL (2.3-4.5); POTASSIUM 3.7 MMOL/L (3.5-5.1); SODIUM 134 MMOL/L (135-145); TOTAL CARBON DIOXIDE 27.2 MMOL/L (24-32); TOTAL PROTEIN 6.4 G/DL (6.4-8.2); eGFR 10 ML/MIN
[2018-01-19 07:08] VITALS: BP 98/69
[2018-01-19] MEDS: levoTHYROXINE 100mcg tablet PO SCH (07:33)
[2018-01-19] MEDS: calcitriol 0.25mcg capsule PO SCH (07:33)
[2018-01-19] MEDS: atorvastatin 10mg tablet PO SCH (07:33)
[2018-01-19] MEDS: aspirin 325mg tablet PO SCH (07:33)
[2018-01-19] MEDS: midodrine 5mg tablet PO SCH ×2 (07:35→12:55)
[2018-01-19] MEDS: cinacalcet 30mg tablet PO SCH (07:35)
[2018-01-19] MEDS: lactobacillus rhamnosus 10,000 MMU CELLS/CAPSULE PO SCH (07:35)
[2018-01-19] MEDS: multivitamins, therapeutics tablet PO SCH (07:35)
[2018-01-19] MEDS: folic acid 1mg tablet PO SCH (07:35)
[2018-01-19] MEDS: sevelamer carbonate 800mg tablet PO SCH ×2 (07:48→12:56)
[2018-01-19] MEDS: enoxaparin 60mg/0.6ml syringe SUBCUT SCH (08:00)
[2018-01-19] MEDS ORDERED: normal saline 1000ml 250 ML IV PRN (08:00)
[2018-01-19] MEDS ORDERED: heparin 1,000unit/ml 10ml vial 10 ML IV ONE (08:00)
[2018-01-19] MEDS: docusate sod 100mg capsule PO SCH (08:00)
[2018-01-19] MEDS: NUT.TX.IMP.RENAL FXN,LAC-REDUC (Nepro) 237 ML VANILLA PO SCH ×2 (08:00→12:56)
[2018-01-19] MEDS ORDERED: heparin 1,000 units/ml 10ml inj HE ONE ×2 (08:00)
[2018-01-19] MEDS ORDERED: albumin (Human) 5% 250ml 250 ML IV PRN (08:00)
[2018-01-19] MEDS ORDERED: epoetin 20,000 units/ml inj IV ONE (08:00)
[2018-01-19 11:00] VITALS: BP 83/56
[2018-01-19] MEDS ORDERED: traMADol 50MG tablet PO PRN (16:30)
[2018-01-19] MEDS ORDERED: MIDO5TAB PO (16:36)
[2018-01-19] MEDS ORDERED: TRAZ-218 PO (16:36)
== END 2018-01-19 18:00 | disposition home IV services (08) | DRG 871 ==
LOC: ER 11:43 → ED HOLD 12:31 → ICU 2S 13:48 → PCU 3S 01-15 16:40
PROVIDERS: ADMIT Internal Medicine Critical Care Medicine
PROC: 30233K1 Transfusion of Nonautologous Frozen Plasma into Peripheral Vein, Percutaneous Approach (ICD-10-PCS; 2018-01-05)
PROC: 5A1D70Z Performance of Urinary Filtration, Intermittent, Less than 6 Hours Per Day (ICD-10-PCS; 2018-01-05)
PROC: 0W9G30Z Drainage of Peritoneal Cavity with Drainage Device, Percutaneous Approach (ICD-10-PCS; principal; 2018-01-06)
PROC: 30233L1 Transfusion of Nonautologous Fresh Plasma into Peripheral Vein, Percutaneous Approach (ICD-10-PCS; 2018-01-06)
PROC: 30233N1 Transfusion of Nonautologous Red Blood Cells into Peripheral Vein, Percutaneous Approach (ICD-10-PCS; 2018-01-06)
PROC: 5A1D70Z Performance of Urinary Filtration, Intermittent, Less than 6 Hours Per Day (ICD-10-PCS; 2018-01-07)
PROC: 5A1D70Z Performance of Urinary Filtration, Intermittent, Less than 6 Hours Per Day (ICD-10-PCS; 2018-01-10)
PROC: 5A1D70Z Performance of Urinary Filtration, Intermittent, Less than 6 Hours Per Day (ICD-10-PCS; 2018-01-12)
PROC: 30233N1 Transfusion of Nonautologous Red Blood Cells into Peripheral Vein, Percutaneous Approach (ICD-10-PCS; 2018-01-14)
PROC: 5A1D70Z Performance of Urinary Filtration, Intermittent, Less than 6 Hours Per Day (ICD-10-PCS; 2018-01-14)
PROC: 5A1D70Z Performance of Urinary Filtration, Intermittent, Less than 6 Hours Per Day (ICD-10-PCS; 2018-01-17)
PROC: 5A1D70Z Performance of Urinary Filtration, Intermittent, Less than 6 Hours Per Day (ICD-10-PCS; 2018-01-19)
DX: A41.01 Sepsis due to Methicillin susceptible Staphylococcus aureus (principal); N18.6 End stage renal disease; I33.0 Acute and subacute infective endocarditis; R18.8 Other ascites; S36.119A Unspecified injury of liver, initial encounter; I12.0 Hypertensive chronic kidney disease with stage 5 chronic kidney disease or end stage renal disease; I48.92 Unspecified atrial flutter; L97.829 Non-pressure chronic ulcer of other part of left lower leg with unspecified severity; R57.9 Shock, unspecified; R65.20 Severe sepsis without septic shock; D64.9 Anemia, unspecified; K75.9 Inflammatory liver disease, unspecified; G25.81 Restless legs syndrome; I25.10 Atherosclerotic heart disease of native coronary artery without angina pectoris; Z95.1 Presence of aortocoronary bypass graft; Z95.2 Presence of prosthetic heart valve; Z99.2 Dependence on renal dialysis; Z79.899 Other long term (current) drug therapy; Z79.82 Long term (current) use of aspirin; Z86.14 Personal history of Methicillin resistant Staphylococcus aureus infection; Z82.3 Family history of stroke; Z82.49 Family history of ischemic heart disease and other diseases of the circulatory system; Z82.5 Family history of asthma and other chronic lower respiratory diseases; Z83.3 Family history of diabetes mellitus
CPT/HCPCS: 36415; 71045; 74018; 76700; 80053; 82042; 82150; 82607; 82728; 82746; 82810; 82948; 83540; 83550; 83605; 83690; 83735; 83921; 84100; 84145; 84443; 84484; 85025; 85027; 85610; 85730; 86644; 86885; 86900; 86901; 86920; 86945; 87040; 87070; 87340; 89051; 93005; 93306; 93970; 93975; 97110; 97116; 97162; 97530; 99285; A4333; A4353; A6212; A6213; A6222; A6223; A6446; A6449; G0257; J0885; J1250; J1644; J1650; J1720; J2270; J3430; J3490; J7030; P9016; P9017; P9047; P9059